=== PATIENT | female | born 1950 | race Caucasian/White ===

== ENCOUNTER 2017-04-10 11:34 | Inpatient (IN) | payer MEDICARE, OTHER ==
[~2017-04-10 11:34] MED LIST: ALEVE220 M1 PO; ASPIR 8181 MG PO; CALCIUM CARBON600 M2 PO; COUMADIN5 M1 PO; CRESTOR10 M1 PO; FISH OIL 1,2001 EAC5 PO; GLUCOSAMINE CHO PO; LOTREL 10-20 M1 EACH PO; NORCO 5/3251 TAB PO; ZIAC 10/6.25 MG1 TAB PO
[2017-04-10] MEDS ORDERED: OSTEO BI-FLEX1 EAC5 PO (11:57)
[2017-04-10] MEDS ORDERED: BISOPROLOL-HCT1 EAC1 PO (11:58)
[2017-04-10] MEDS ORDERED: VITAMIN D5000 UNI1 PO (11:58)
[2017-04-10] MEDS ORDERED: ROSUVASTATIN CA10 MG PO (12:01)
[2017-04-10] MEDS ORDERED: FOSAMAX70 M1 PO (12:21)
[2017-04-10] MEDS ORDERED: ASPIRIN81 M1 PO (12:35)
[2017-04-10 12:46] LABS: HCT-HEMATOCRIT 35.4 % (34.0-49.0); MCH (MEAN CORPUSCULAR HGB) 28.6 pg (28.0-32.0); MCHC MEAN CORPUSCULAR HGB CONC 33.9 % (32.0-36.0); MCV (MEAN CELL VOLUME) 84.3 fl (82.0-96.0); MEAN PLATELET VOLUME 10.2 cmc (9.4-12.4); PLATELET COUNT 133 tho/cmm (150-450); RED CELL DISTRIBUTION WIDTH 14.5 % (12.4-16.4); WHITE BLOOD COUNT 21.2 tho/cmm (4.0-10.0)
[2017-04-10 12:58] LABS: ALB/GLOB RATIO 1.1 (0.8-2.0); ALBUMIN 3.3 g/dl (3.5-5.0); ALKALINE PHOSPHATASE 49 U/L (33-138); ALT/SGPT 26 U/L (12-78); ANION GAP 18 mmol/L (0-20); AST/SGOT 24 U/L (10-40); BILIRUBIN,TOTAL 1.1 mg/dl (0-1.5); BLOOD UREA NITROGEN 44 mg/dl (6-24); CALCIUM 9.1 mg/dl (8.5-10.5); CARBON DIOXIDE-VENOUS 20 mmol/L (22-32); CHLORIDE 105 mmol/l (96-110); CREATININE 1.79 mg/dl (0.50-1.10); GLUCOSE 127 mg/dL (70-110); POTASSIUM 3.4 mmol/L (3.7-5.1); SODIUM 140 mmol/L (135-145); eGFR VALUE FOR BLACK 34 mL/Min
[2017-04-10 13:13] LABS: BAND % 21 % (0-20); BAND ABSOLUTE COUNT 4.5 tho/cmm (0-2.0); WBC MORPHOLOGY TOXIC GRANULATION
[2017-04-10 14:12] LABS: PROCALCITONIN 21.98 ng/ml (0.05-0.09)
[2017-04-10 14:18] LABS: URINE APPEARANCE HAZY; URINE BILIRUBIN SMALL (NEG); URINE BLOOD LARGE (NEG); URINE COLOR ORANGE; URINE GLUCOSE (UA) NEGATIVE (NEG); URINE KETONE SMALL (NEG); URINE LEUKOCYTE ESTERASE POSITIVE (NEG); URINE NITRITE NEGATIVE (NEG); URINE PROTEIN MODERATE (NEG)
[2017-04-10 14:29] LABS: URINE BACTERIA 4+
[2017-04-10 14:30] LABS: URINE WBC 50-60 /[HPF] (0-5)
[2017-04-10 14:31] LABS: URINE RBC 30-40 /[HPF] (0-5)
[2017-04-10 14:32] LABS: URINE MUCUS 1+
[2017-04-10 19:39] LABS: ABG CO2 ARTERIAL 15 mmol/L (21-27); ARTERIAL BLD GAS O2 SATURATION 94 % (95-98); ARTERIAL BLOOD GAS PCO2 27 mmHg (32-45); ARTERIAL PO2 78 mmHg (70-100); BICARBONATE 14 mmol/L (21-28); BLOOD GAS BASE EXCESS -10 mM/L (-/+3); PH 7.34 Units (7.35-7.45)
[2017-04-10 19:49] LABS: INR 1.7 INR (0.9-1.1); PROTHROMBIN TIME 20.5 SECONDS (9.0-13.6)
[2017-04-10 23:15] LABS: ARTERIAL BLD GAS O2 SATURATION 93 % (95-98); BLOOD GAS BASE EXCESS -19 mM/L (-/+3)
[2017-04-10 23:19] LABS: ABG CO2 ARTERIAL 9 mmol/L (21-27); ARTERIAL BLOOD GAS PCO2 20 mmHg (32-45); PH 7.21 Units (7.35-7.45)
[2017-04-10 23:20] LABS: ARTERIAL PO2 79 mmHg (70-100); BICARBONATE 8 mmol/L (21-28)
[2017-04-11 00:54] LABS: BLOOD UREA NITROGEN 44 mg/dl (6-24); CALCIUM 7.2 mg/dl (8.5-10.5); CHLORIDE 110 mmol/l (96-110); GLUCOSE 111 mg/dL (70-110); SODIUM 141 mmol/L (135-145); eGFR VALUE FOR BLACK 19 mL/Min
[2017-04-11 01:21] LABS: ANION GAP 27 mmol/L (0-20); CREATININE 2.82 mg/dl (0.50-1.10)
[2017-04-11 01:22] LABS: CARBON DIOXIDE-VENOUS 8 mmol/L (22-32)
[2017-04-11 01:23] LABS: POTASSIUM 3.5 mmol/L (3.7-5.1)
[2017-04-11 02:00] LABS: ARTERIAL BLD GAS O2 SATURATION 94 % (95-98); ARTERIAL BLOOD GAS PCO2 23 mmHg (32-45); ARTERIAL PO2 102 mmHg (70-100); BICARBONATE 6 mmol/L (21-28); BLOOD GAS BASE EXCESS -23 mM/L (-/+3)
[2017-04-11 02:04] LABS: PH 7.06 Units (7.35-7.45)
[2017-04-11 02:05] LABS: ABG CO2 ARTERIAL 7 mmol/L (21-27)
[2017-04-11 04:28] LABS: ARTERIAL BLD GAS O2 SATURATION 96 % (95-98); ARTERIAL PO2 94 mmHg (70-100); BICARBONATE 8 mmol/L (21-28); BLOOD GAS BASE EXCESS -18 mM/L (-/+3)
[2017-04-11 04:29] LABS: PH 7.24 Units (7.35-7.45)
[2017-04-11 04:30] LABS: ARTERIAL BLOOD GAS PCO2 19 mmHg (32-45)
[2017-04-11 04:31] LABS: ABG CO2 ARTERIAL 9 mmol/L (21-27)
[2017-04-11 07:39] LABS: ABG CO2 ARTERIAL 9 mmol/L (21-27); ARTERIAL BLD GAS O2 SATURATION 97 % (95-98); ARTERIAL BLOOD GAS PCO2 27 mmHg (32-45); ARTERIAL PO2 117 mmHg (70-100); BICARBONATE 8 mmol/L (21-28); BLOOD GAS BASE EXCESS -20 mM/L (-/+3); HCT-HEMATOCRIT 30.5 % (34.0-49.0); HGB-HEMOGLOBIN 9.8 gm/dl (12.0-15.5); MCHC MEAN CORPUSCULAR HGB CONC 32.1 % (32.0-36.0); MCV (MEAN CELL VOLUME) 87.1 fl (82.0-96.0); MEAN PLATELET VOLUME 10.8 cmc (9.4-12.4); NEUTROPHIL-AUTOMATED 14.7 tho/cmm (1.6-8.0); PH 7.12 Units (7.35-7.45); RED CELL DISTRIBUTION WIDTH 15.6 % (12.4-16.4); WHITE BLOOD COUNT 17.1 tho/cmm (4.0-10.0)
[2017-04-11 08:05] LABS: BLOOD UREA NITROGEN 44 mg/dl (6-24); CALCIUM 6.7 mg/dl (8.5-10.5); CHLORIDE 108 mmol/l (96-110); SODIUM 144 mmol/L (135-145); eGFR VALUE FOR BLACK 20 mL/Min
[2017-04-11 08:42] LABS: ANION GAP 30 mmol/L (0-20); GLUCOSE 177 mg/dL (70-110)
[2017-04-11 08:43] LABS: POTASSIUM 2.8 mmol/L (3.7-5.1)
[2017-04-11 10:57] LABS: PLATELET COUNT 48 tho/cmm (150-450)
[2017-04-11 11:02] LABS: BAND % 41 % (0-20)
[2017-04-11 12:05] LABS: ARTERIAL BLD GAS O2 SATURATION 97 % (95-98); BICARBONATE 7 mmol/L (21-28); BLOOD GAS BASE EXCESS -20 mM/L (-/+3)
[2017-04-11 12:06] LABS: ABG CO2 ARTERIAL 7 mmol/L (21-27); ARTERIAL BLOOD GAS PCO2 17 mmHg (32-45); ARTERIAL PO2 100 mmHg (70-100); PH 7.22 Units (7.35-7.45)
[2017-04-11 12:07] LABS: PHOSPHOROUS 5.8 mg/dl (2.5-4.9)
[2017-04-11 12:24] LABS: BLOOD UREA NITROGEN 44 mg/dl (6-24); CHLORIDE 106 mmol/l (96-110); CREATININE 2.82 mg/dl (0.50-1.10); GLUCOSE 188 mg/dL (70-110); POTASSIUM 3.4 mmol/L (3.7-5.1); SODIUM 141 mmol/L (135-145); eGFR VALUE FOR BLACK 19 mL/Min
[2017-04-11 12:41] LABS: ANION GAP 30 mmol/L (0-20)
[2017-04-11 12:44] LABS: CALCIUM 6.2 mg/dl (8.5-10.5); CARBON DIOXIDE-VENOUS 8 mmol/L (22-32)
[2017-04-11 12:44] LABS: CARBON DIOXIDE-VENOUS 9 mmol/L (22-32)
[2017-04-11 18:18] LABS: ABG CO2 ARTERIAL 10 mmol/L (21-27); ARTERIAL BLD GAS O2 SATURATION 97 % (95-98); ARTERIAL PO2 98 mmHg (70-100); BICARBONATE 9 mmol/L (21-28); BLOOD GAS BASE EXCESS -15 mM/L (-/+3); PH 7.32 Units (7.35-7.45)
[2017-04-11 18:19] LABS: ARTERIAL BLOOD GAS PCO2 19 mmHg (32-45)
[2017-04-11 18:34] LABS: BLOOD UREA NITROGEN 48 mg/dl (6-24); CHLORIDE 107 mmol/l (96-110); CREATININE 3.06 mg/dl (0.50-1.10); GLUCOSE 129 mg/dL (70-110); POTASSIUM 4.1 mmol/L (3.7-5.1); SODIUM 143 mmol/L (135-145); eGFR VALUE FOR BLACK 18 mL/Min
[2017-04-11 18:45] LABS: ANION GAP 31 mmol/L (0-20); CALCIUM 7.9 mg/dl (8.5-10.5)
[2017-04-11 18:46] LABS: CARBON DIOXIDE-VENOUS 9 mmol/L (22-32)
[2017-04-11 21:21] LABS: ABG CO2 ARTERIAL 19 mmol/L (21-27); ARTERIAL BLD GAS O2 SATURATION 92 % (95-98); ARTERIAL BLOOD GAS PCO2 25 mmHg (32-45); ARTERIAL PO2 59 mmHg (70-100); BICARBONATE 18 mmol/L (21-28); BLOOD GAS BASE EXCESS -4 mM/L (-/+3); PH 7.48 Units (7.35-7.45)
[2017-04-12 00:28] LABS: ABG CO2 ARTERIAL 16 mmol/L (21-27); ARTERIAL BLD GAS O2 SATURATION 93 % (95-98); ARTERIAL BLOOD GAS PCO2 24 mmHg (32-45); ARTERIAL PO2 68 mmHg (70-100); BICARBONATE 15 mmol/L (21-28); BLOOD GAS BASE EXCESS -8 mM/L (-/+3); PH 7.42 Units (7.35-7.45)
[2017-04-12 00:44] LABS: ANION GAP 31 mmol/L (0-20); BLOOD UREA NITROGEN 50 mg/dl (6-24); CALCIUM 7.1 mg/dl (8.5-10.5); CHLORIDE 102 mmol/l (96-110); CREATININE 3.62 mg/dl (0.50-1.10); GLUCOSE 115 mg/dL (70-110); POTASSIUM 3.8 mmol/L (3.7-5.1); SODIUM 145 mmol/L (135-145); eGFR VALUE FOR BLACK 14 mL/Min
[2017-04-12 01:00] LABS: CARBON DIOXIDE-VENOUS 16 mmol/L (22-32)
[2017-04-12 04:36] LABS: ABG CO2 ARTERIAL 19 mmol/L (21-27); ARTERIAL BLD GAS O2 SATURATION 94 % (95-98); ARTERIAL BLOOD GAS PCO2 27 mmHg (32-45); ARTERIAL PO2 71 mmHg (70-100); BICARBONATE 18 mmol/L (21-28); BLOOD GAS BASE EXCESS -4 mM/L (-/+3); PH 7.44 Units (7.35-7.45)
[2017-04-12 05:06] LABS: ALBUMIN 2.5 g/dl (3.5-5.0); ALKALINE PHOSPHATASE 67 U/L (33-138); BLOOD UREA NITROGEN 52 mg/dl (6-24); CALCIUM 6.8 mg/dl (8.5-10.5); CARBON DIOXIDE-VENOUS 19 mmol/L (22-32); CHLORIDE 101 mmol/l (96-110); INR 2.6 INR (0.9-1.1); PHOSPHOROUS 3.7 mg/dl (2.5-4.9); PROTHROMBIN TIME 31.1 SECONDS (9.0-13.6); SODIUM 145 mmol/L (135-145); eGFR VALUE FOR BLACK 13 mL/Min
[2017-04-12 05:09] LABS: ALB/GLOB RATIO 1.3 (0.8-2.0); ANION GAP 29 mmol/L (0-20); BILIRUBIN,TOTAL 3.3 mg/dl (0-1.5); GLUCOSE 102 mg/dL (70-110); MAGNESIUM 1.9 mg/dl (1.8-2.6)
[2017-04-12 05:32] LABS: AST/SGOT 2826 U/L (10-40)
[2017-04-12 05:33] LABS: ALT/SGPT 1953 U/L (12-78)
[2017-04-12 05:36] LABS: HCT-HEMATOCRIT 27.2 % (34.0-49.0); HGB-HEMOGLOBIN 9.5 gm/dl (12.0-15.5); MCH (MEAN CORPUSCULAR HGB) 28.7 pg (28.0-32.0); MCV (MEAN CELL VOLUME) 82.2 fl (82.0-96.0); NEUTROPHIL-AUTOMATED 13.5 tho/cmm (1.6-8.0); RED BLOOD COUNT 3.31 mil/cmm (4.00-5.20); RED CELL DISTRIBUTION WIDTH 15.5 % (12.4-16.4); WHITE BLOOD COUNT 14.9 tho/cmm (4.0-10.0)
[2017-04-12 05:39] LABS: MCHC MEAN CORPUSCULAR HGB CONC 34.9 % (32.0-36.0)
[2017-04-12 05:42] LABS: PLATELET COUNT 29 tho/cmm (150-450)
[2017-04-12 06:37] LABS: BILIRUBIN,DIRECT 2.1 mg/dl (0.0-0.3); BILIRUBIN,INDIRECT 1.3 mg/dL (0.0-1.0); BILIRUBIN,TOTAL 3.4 mg/dl (0-1.5)
[2017-04-12 06:42] LABS: ABG CO2 ARTERIAL 21 mmol/L (21-27); ARTERIAL BLD GAS O2 SATURATION 94 % (95-98); ARTERIAL BLOOD GAS PCO2 28 mmHg (32-45); ARTERIAL PO2 70 mmHg (70-100); BICARBONATE 20 mmol/L (21-28); BLOOD GAS BASE EXCESS -3 mM/L (-/+3); PH 7.47 Units (7.35-7.45)
[2017-04-12 06:59] LABS: INR 2.5 INR (0.9-1.1); PROTHROMBIN TIME 29.5 SECONDS (9.0-13.6)
[2017-04-12 08:39] LABS: INR 2.3 INR (0.9-1.1); PROTHROMBIN TIME 26.9 SECONDS (9.0-13.6)
[2017-04-12 11:31] LABS: ABG CO2 ARTERIAL 24 mmol/L (21-27); ARTERIAL BLD GAS O2 SATURATION 97 % (95-98); BICARBONATE 23 mmol/L (21-28); BLOOD GAS BASE EXCESS -1 mM/L (-/+3); PH 7.44 Units (7.35-7.45)
[2017-04-12 11:32] LABS: ARTERIAL BLOOD GAS PCO2 34 mmHg (32-45); ARTERIAL PO2 98 mmHg (70-100)
[2017-04-12 11:35] LABS: BAND % 56 % (0-20); BAND ABSOLUTE COUNT 8.3 tho/cmm (0-2.0)
[2017-04-12 12:49] LABS: BLOOD UREA NITROGEN 55 mg/dl (6-24); CALCIUM 7.4 mg/dl (8.5-10.5); CARBON DIOXIDE-VENOUS 24 mmol/L (22-32); CHLORIDE 101 mmol/l (96-110); CREATININE 4.01 mg/dl (0.50-1.10); SODIUM 145 mmol/L (135-145); eGFR VALUE FOR BLACK 13 mL/Min
[2017-04-12 12:52] LABS: ANION GAP 24 mmol/L (0-20); GLUCOSE 103 mg/dL (70-110); POTASSIUM 3.9 mmol/L (3.7-5.1)
[2017-04-12 12:53] LABS: PREALBUMIN >60.0 mg/dl (20.0-40.0)
[2017-04-12 14:13] LABS: HCT-HEMATOCRIT 24.9 % (34.0-49.0); MCH (MEAN CORPUSCULAR HGB) 29.5 pg (28.0-32.0); MCHC MEAN CORPUSCULAR HGB CONC 36.1 % (32.0-36.0); MCV (MEAN CELL VOLUME) 81.6 fl (82.0-96.0); MEAN PLATELET VOLUME 9.9 cmc (9.4-12.4); RED BLOOD COUNT 3.05 mil/cmm (4.00-5.20); RED CELL DISTRIBUTION WIDTH 15.4 % (12.4-16.4); WHITE BLOOD COUNT 17.8 tho/cmm (4.0-10.0)
[2017-04-12 14:16] LABS: INR 1.8 INR (0.9-1.1)
[2017-04-12 14:37] LABS: PROTHROMBIN TIME 20.7 SECONDS (9.0-13.6)
[2017-04-12 14:44] LABS: BAND % 42 % (0-20); BAND ABSOLUTE COUNT 7.5 tho/cmm (0-2.0); PLATELET COUNT 80 tho/cmm (150-450)
[2017-04-12 17:35] LABS: ABG CO2 ARTERIAL 26 mmol/L (21-27); ARTERIAL BLD GAS O2 SATURATION 97 % (95-98); ARTERIAL BLOOD GAS PCO2 38 mmHg (32-45); ARTERIAL PO2 100 mmHg (70-100); BICARBONATE 25 mmol/L (21-28); BLOOD GAS BASE EXCESS 1 mM/L (-/+3); PH 7.43 Units (7.35-7.45)
[2017-04-12 17:55] LABS: CARBON DIOXIDE-VENOUS 26 mmol/L (22-32); CHLORIDE 102 mmol/l (96-110); SODIUM 142 mmol/L (135-145); eGFR VALUE FOR BLACK 23 mL/Min
[2017-04-12 17:57] LABS: ANION GAP 18 mmol/L (0-20); CREATININE 2.42 mg/dl (0.50-1.10); GLUCOSE 135 mg/dL (70-110); POTASSIUM 3.5 mmol/L (3.7-5.1)
[2017-04-12 18:18] LABS: BLOOD UREA NITROGEN 30 mg/dl (6-24)
[2017-04-13 00:28] LABS: ABG CO2 ARTERIAL 27 mmol/L (21-27); ARTERIAL BLD GAS O2 SATURATION 98 % (95-98); ARTERIAL BLOOD GAS PCO2 37 mmHg (32-45); ARTERIAL PO2 97 mmHg (70-100); BICARBONATE 26 mmol/L (21-28); BLOOD GAS BASE EXCESS 2 mM/L (-/+3); PH 7.45 Units (7.35-7.45)
[2017-04-13 00:45] LABS: CALCIUM 6.6 mg/dl (8.5-10.5); CARBON DIOXIDE-VENOUS 26 mmol/L (22-32); CHLORIDE 100 mmol/l (96-110); CREATININE 2.92 mg/dl (0.50-1.10); SODIUM 140 mmol/L (135-145); eGFR VALUE FOR BLACK 19 mL/Min
[2017-04-13 00:46] LABS: ANION GAP 18 mmol/L (0-20); GLUCOSE 97 mg/dL (70-110); POTASSIUM 4.3 mmol/L (3.7-5.1)
[2017-04-13 00:47] LABS: BLOOD UREA NITROGEN 30 mg/dl (6-24)
[2017-04-13 03:47] LABS: HGB-HEMOGLOBIN 8.7 gm/dl (12.0-15.5); MCHC MEAN CORPUSCULAR HGB CONC 36.3 % (32.0-36.0); MCV (MEAN CELL VOLUME) 82.8 fl (82.0-96.0); NEUTROPHIL-AUTOMATED 12.8 tho/cmm (1.6-8.0); PLATELET COUNT 54 tho/cmm (150-450); RED CELL DISTRIBUTION WIDTH 15.6 % (12.4-16.4); WHITE BLOOD COUNT 16.3 tho/cmm (4.0-10.0)
[2017-04-13 04:13] LABS: BASO % 0.1 % (0-2); EOS % 0.2 % (0-7); IMMATURE GRANULOCYTES ABSOLUTE 1.99 tho/cmm (0-0.03); IMMATURE GRANULOCYTES PERCENT 12.2 % (0-0.3); INR 1.4 INR (0.9-1.1); LYMPH % 4.4 % (20-45); LYMPH ABSOLUTE COUNT 0.7 tho/cmm (0.8-4.5); MONO % 4.4 % (0-12); MONOCYTE ABSOLUTE COUNT 0.7 tho/cmm (0.0-1.2); NEUTROPHIL ABSOLUTE COUNT 12.8 tho/cmm (1.6-8.0); NEUTROPHILS % 78.7 % (40-80); PROTHROMBIN TIME 16.9 SECONDS (9.0-13.6)
[2017-04-13 04:45] LABS: BLOOD UREA NITROGEN 33 mg/dl (6-24)
[2017-04-13 04:55] LABS: ABG CO2 ARTERIAL 28 mmol/L (21-27); ARTERIAL BLD GAS O2 SATURATION 96 % (95-98); ARTERIAL BLOOD GAS PCO2 39 mmHg (32-45); ARTERIAL PO2 96 mmHg (70-100); BICARBONATE 27 mmol/L (21-28); BLOOD GAS BASE EXCESS 3 mM/L (-/+3); PH 7.45 Units (7.35-7.45)
[2017-04-13 05:11] LABS: CHLORIDE 101 mmol/l (96-110); POTASSIUM 4.1 mmol/L (3.7-5.1); SODIUM 142 mmol/L (135-145)
[2017-04-13 05:12] LABS: ALB/GLOB RATIO 1.2 (0.8-2.0); ALBUMIN 2.9 g/dl (3.5-5.0); ANION GAP 19 mmol/L (0-20); CALCIUM 7.1 mg/dl (8.5-10.5); CARBON DIOXIDE-VENOUS 26 mmol/L (22-32); CREATININE 3.17 mg/dl (0.50-1.10); GLUCOSE 73 mg/dL (70-110); eGFR VALUE FOR BLACK 17 mL/Min
[2017-04-13 05:13] LABS: ALKALINE PHOSPHATASE 205 U/L (33-138); ALT/SGPT 1354 U/L (12-78); AST/SGOT 1318 U/L (10-40); MAGNESIUM 1.7 mg/dl (1.8-2.6); PHOSPHOROUS 2.3 mg/dl (2.5-4.9); TRIGLYCERIDES 489 mg/dl (<149)
[2017-04-13 05:14] LABS: BILIRUBIN,DIRECT 3.7 mg/dl (0.0-0.3); BILIRUBIN,TOTAL 5.7 mg/dl (0-1.5)
[2017-04-13 06:45] LABS: ABG CO2 ARTERIAL 28 mmol/L (21-27); ARTERIAL BLD GAS O2 SATURATION 97 % (95-98); ARTERIAL BLOOD GAS PCO2 38 mmHg (32-45); ARTERIAL PO2 99 mmHg (70-100); BICARBONATE 27 mmol/L (21-28); BLOOD GAS BASE EXCESS 4 mM/L (-/+3); PH 7.47 Units (7.35-7.45)
[2017-04-13 07:22] LABS: WBC MORPHOLOGY DOHLE BODIES
[2017-04-13 08:34] LABS: AMYLASE 60 U/L (20-90); LIPASE 303 U/L (73-393)
[2017-04-13 08:36] LABS: CALCIUM 6.8 mg/dl (8.5-10.5); CARBON DIOXIDE-VENOUS 26 mmol/L (22-32); CHLORIDE 98 mmol/l (96-110); CREATININE 3.23 mg/dl (0.50-1.10); SODIUM 139 mmol/L (135-145); eGFR VALUE FOR BLACK 16 mL/Min
[2017-04-13 08:48] LABS: ANION GAP 19 mmol/L (0-20); GLUCOSE 98 mg/dL (70-110)
[2017-04-13 08:53] LABS: BLOOD UREA NITROGEN 33 mg/dl (6-24)
[2017-04-13 12:24] LABS: ABG CO2 ARTERIAL 29 mmol/L (21-27); ARTERIAL BLD GAS O2 SATURATION 96 % (95-98); ARTERIAL BLOOD GAS PCO2 38 mmHg (32-45); BICARBONATE 28 mmol/L (21-28); BLOOD GAS BASE EXCESS 4 mM/L (-/+3); PH 7.48 Units (7.35-7.45)
[2017-04-13 12:25] LABS: ARTERIAL PO2 76 mmHg (70-100)
[2017-04-13 12:42] LABS: BLOOD UREA NITROGEN 37 mg/dl (6-24); CALCIUM 6.8 mg/dl (8.5-10.5); CARBON DIOXIDE-VENOUS 28 mmol/L (22-32); CHLORIDE 99 mmol/l (96-110); CREATININE 3.54 mg/dl (0.50-1.10); SODIUM 139 mmol/L (135-145); eGFR VALUE FOR BLACK 15 mL/Min
[2017-04-13 12:45] LABS: ANION GAP 16 mmol/L (0-20); GLUCOSE 95 mg/dL (70-110)
[2017-04-13 18:00] LABS: ABG CO2 ARTERIAL 27 mmol/L (21-27); ARTERIAL BLD GAS O2 SATURATION 97 % (95-98); ARTERIAL BLOOD GAS PCO2 37 mmHg (32-45); BICARBONATE 26 mmol/L (21-28); BLOOD GAS BASE EXCESS 2 mM/L (-/+3); PH 7.45 Units (7.35-7.45)
[2017-04-13 18:01] LABS: ARTERIAL PO2 87 mmHg (70-100)
[2017-04-13 18:39] LABS: BLOOD UREA NITROGEN 15 mg/dl (6-24); CALCIUM 6.8 mg/dl (8.5-10.5); CARBON DIOXIDE-VENOUS 25 mmol/L (22-32); CHLORIDE 103 mmol/l (96-110); GLUCOSE 121 mg/dL (70-110); SODIUM 140 mmol/L (135-145); eGFR VALUE FOR BLACK 30 mL/Min
[2017-04-13 18:44] LABS: ANION GAP 16 mmol/L (0-20); CREATININE 1.98 mg/dl (0.50-1.10); POTASSIUM 3.8 mmol/L (3.7-5.1)
[2017-04-13 23:57] LABS: ABG CO2 ARTERIAL 26 mmol/L (21-27); ARTERIAL BLD GAS O2 SATURATION 98 % (95-98); ARTERIAL BLOOD GAS PCO2 36 mmHg (32-45); ARTERIAL PO2 101 mmHg (70-100); BICARBONATE 25 mmol/L (21-28); BLOOD GAS BASE EXCESS 2 mM/L (-/+3); PH 7.46 Units (7.35-7.45)
[2017-04-14 04:31] LABS: ALB/GLOB RATIO 0.8 (0.8-2.0); ALBUMIN 2.3 g/dl (3.5-5.0); ALT/SGPT 878 U/L (12-78); BILIRUBIN,TOTAL 7.6 mg/dl (0-1.5); BLOOD UREA NITROGEN 23 mg/dl (6-24); CALCIUM 7.1 mg/dl (8.5-10.5); CARBON DIOXIDE-VENOUS 26 mmol/L (22-32); CHLORIDE 98 mmol/l (96-110); GLUCOSE 110 mg/dL (70-110); SODIUM 137 mmol/L (135-145)
[2017-04-14 04:32] LABS: ANION GAP 17 mmol/L (0-20); CREATININE 2.98 mg/dl (0.50-1.10); eGFR VALUE FOR BLACK 18 mL/Min
[2017-04-14 04:33] LABS: ALKALINE PHOSPHATASE 379 U/L (33-138); AST/SGOT 672 U/L (10-40); BILIRUBIN,INDIRECT 1.6 mg/dL (0.0-1.0)
[2017-04-14 04:34] LABS: POTASSIUM 3.8 mmol/L (3.7-5.1)
[2017-04-14 04:51] LABS: INR 1.3 INR (0.9-1.1)
[2017-04-14 04:54] LABS: HCT-HEMATOCRIT 25.5 % (34.0-49.0); HGB-HEMOGLOBIN 8.8 gm/dl (12.0-15.5); MCHC MEAN CORPUSCULAR HGB CONC 34.5 % (32.0-36.0); MCV (MEAN CELL VOLUME) 82.5 fl (82.0-96.0); MEAN PLATELET VOLUME 10.6 cmc (9.4-12.4); RED BLOOD COUNT 3.09 mil/cmm (4.00-5.20); RED CELL DISTRIBUTION WIDTH 15.6 % (12.4-16.4); WHITE BLOOD COUNT 21.1 tho/cmm (4.0-10.0)
[2017-04-14 05:01] LABS: MCH (MEAN CORPUSCULAR HGB) 28.5 pg (28.0-32.0)
[2017-04-14 05:31] LABS: MAGNESIUM 1.8 mg/dl (1.8-2.6); PHOSPHOROUS 0.6 mg/dl (2.5-4.9)
[2017-04-14 05:38] LABS: ABG CO2 ARTERIAL 27 mmol/L (21-27); ARTERIAL BLD GAS O2 SATURATION 95 % (95-98); ARTERIAL BLOOD GAS PCO2 35 mmHg (32-45); BICARBONATE 26 mmol/L (21-28); BLOOD GAS BASE EXCESS 3 mM/L (-/+3); PH 7.48 Units (7.35-7.45)
[2017-04-14 05:43] LABS: ARTERIAL PO2 70 mmHg (70-100)
[2017-04-14 06:56] LABS: PLATELET COUNT 27 tho/cmm (150-450)
[2017-04-14 07:05] LABS: BAND % 43 % (0-20); BAND ABSOLUTE COUNT 9.1 tho/cmm (0-2.0)
[2017-04-14 19:46] LABS: MAGNESIUM 1.7 mg/dl (1.8-2.6); POTASSIUM 4.1 mmol/L (3.7-5.1)
[2017-04-15 04:52] LABS: ABG CO2 ARTERIAL 26 mmol/L (21-27); ARTERIAL BLD GAS O2 SATURATION 96 % (95-98); ARTERIAL BLOOD GAS PCO2 35 mmHg (32-45); ARTERIAL PO2 79 mmHg (70-100); BICARBONATE 24 mmol/L (21-28); BLOOD GAS BASE EXCESS 1 mM/L (-/+3); PH 7.46 Units (7.35-7.45)
[2017-04-15 05:14] LABS: ALBUMIN 2.2 g/dl (3.5-5.0); BILIRUBIN,DIRECT 7.9 mg/dl (0.0-0.3); CALCIUM 7.7 mg/dl (8.5-10.5); CARBON DIOXIDE-VENOUS 25 mmol/L (22-32); CHLORIDE 100 mmol/l (96-110); GLUCOSE 98 mg/dL (70-110); SODIUM 137 mmol/L (135-145)
[2017-04-15 05:17] LABS: ALB/GLOB RATIO 0.7 (0.8-2.0); BILIRUBIN,INDIRECT 1.7 mg/dL (0.0-1.0); BILIRUBIN,TOTAL 9.6 mg/dl (0-1.5); PHOSPHOROUS 2.3 mg/dl (2.5-4.9)
[2017-04-15 05:22] LABS: ALKALINE PHOSPHATASE 482 U/L (33-138); ALT/SGPT 409 U/L (12-78); ANION GAP 16 mmol/L (0-20); AST/SGOT 284 U/L (10-40); BLOOD UREA NITROGEN 43 mg/dl (6-24); CREATININE 4.46 mg/dl (0.50-1.10); MAGNESIUM 2.3 mg/dl (1.8-2.6); eGFR VALUE FOR BLACK 11 mL/Min
[2017-04-15 08:27] LABS: HGB-HEMOGLOBIN 9.2 gm/dl (12.0-15.5); MCH (MEAN CORPUSCULAR HGB) 28.1 pg (28.0-32.0); MCHC MEAN CORPUSCULAR HGB CONC 34.1 % (32.0-36.0); MCV (MEAN CELL VOLUME) 82.6 fl (82.0-96.0); NEUTROPHIL-AUTOMATED 24.9 tho/cmm (1.6-8.0); RED BLOOD COUNT 3.27 mil/cmm (4.00-5.20); RED CELL DISTRIBUTION WIDTH 15.3 % (12.4-16.4); WHITE BLOOD COUNT 28.9 tho/cmm (4.0-10.0)
[2017-04-15 08:30] LABS: PLATELET COUNT 19 tho/cmm (150-450)
[2017-04-15 09:59] LABS: BAND % 35 % (0-20); BAND ABSOLUTE COUNT 10.1 tho/cmm (0-2.0); EOSINOPHIL % 1 % (0-7)
[2017-04-15 10:25] LABS: ABG CO2 ARTERIAL 25 mmol/L (21-27); ARTERIAL BLD GAS O2 SATURATION 94 % (95-98); ARTERIAL BLOOD GAS PCO2 33 mmHg (32-45); BICARBONATE 24 mmol/L (21-28); BLOOD GAS BASE EXCESS 1 mM/L (-/+3); PH 7.46 Units (7.35-7.45)
[2017-04-15 10:29] LABS: ARTERIAL PO2 65 mmHg (70-100)
[2017-04-16 04:28] LABS: BASO % 0.1 % (0-2); EOS % 0.7 % (0-7); EOSINOPHIL ABSOLUTE COUNT 0.2 tho/cmm (0.0-0.7); HCT-HEMATOCRIT 25.5 % (34.0-49.0); HGB-HEMOGLOBIN 8.8 gm/dl (12.0-15.5); IMMATURE GRANULOCYTES ABSOLUTE 0.47 tho/cmm (0-0.03); IMMATURE GRANULOCYTES PERCENT 1.5 % (0-0.3); INR 1.2 INR (0.9-1.1); LYMPH ABSOLUTE COUNT 0.9 tho/cmm (0.8-4.5); MCH (MEAN CORPUSCULAR HGB) 27.8 pg (28.0-32.0); MCHC MEAN CORPUSCULAR HGB CONC 34.5 % (32.0-36.0); MCV (MEAN CELL VOLUME) 80.7 fl (82.0-96.0); MEAN PLATELET VOLUME 9.9 cmc (9.4-12.4); MONO % 9.3 % (0-12); MONOCYTE ABSOLUTE COUNT 2.9 tho/cmm (0.0-1.2); NEUTROPHIL ABSOLUTE COUNT 26.7 tho/cmm (1.6-8.0); NEUTROPHIL-AUTOMATED 26.7 tho/cmm (1.6-8.0); NEUTROPHILS % 85.4 % (40-80); PROTHROMBIN TIME 13.5 SECONDS (9.0-13.6); RED BLOOD COUNT 3.16 mil/cmm (4.00-5.20); RED CELL DISTRIBUTION WIDTH 15.5 % (12.4-16.4); WHITE BLOOD COUNT 31.3 tho/cmm (4.0-10.0)
[2017-04-16 04:38] LABS: ALB/GLOB RATIO 0.6 (0.8-2.0); ALBUMIN 2.1 g/dl (3.5-5.0); BILIRUBIN,DIRECT 7.4 mg/dl (0.0-0.3); BILIRUBIN,INDIRECT 1.7 mg/dL (0.0-1.0); BILIRUBIN,TOTAL 9.1 mg/dl (0-1.5); BLOOD UREA NITROGEN 38 mg/dl (6-24); CALCIUM 7.4 mg/dl (8.5-10.5); CARBON DIOXIDE-VENOUS 25 mmol/L (22-32); CHLORIDE 98 mmol/l (96-110); CREATININE 3.53 mg/dl (0.50-1.10); GLUCOSE 95 mg/dL (70-110); PHOSPHOROUS 2.1 mg/dl (2.5-4.9); SODIUM 134 mmol/L (135-145); eGFR VALUE FOR BLACK 15 mL/Min
[2017-04-16 04:40] LABS: PLATELET COUNT 35 tho/cmm (150-450)
[2017-04-16 05:17] LABS: ANION GAP 15 mmol/L (0-20)
[2017-04-16 05:18] LABS: ALKALINE PHOSPHATASE 509 U/L (33-138); ALT/SGPT 177 U/L (12-78); AST/SGOT 129 U/L (10-40); MAGNESIUM 1.8 mg/dl (1.8-2.6); POTASSIUM 3.9 mmol/L (3.7-5.1)
[2017-04-16 05:42] LABS: ABG CO2 ARTERIAL 24 mmol/L (21-27); ARTERIAL BLD GAS O2 SATURATION 93 % (95-98); ARTERIAL BLOOD GAS PCO2 34 mmHg (32-45); ARTERIAL PO2 63 mmHg (70-100); BICARBONATE 23 mmol/L (21-28); BLOOD GAS BASE EXCESS 0 mM/L (-/+3); PH 7.45 Units (7.35-7.45)
[2017-04-17 03:57] LABS: BASO % 0.2 % (0-2); BASO ABSOLUTE COUNT 0.1 tho/cmm (0.0-0.2); EOS % 0.7 % (0-7); EOSINOPHIL ABSOLUTE COUNT 0.2 tho/cmm (0.0-0.7); HGB-HEMOGLOBIN 7.9 gm/dl (12.0-15.5); IMMATURE GRANULOCYTES ABSOLUTE 0.51 tho/cmm (0-0.03); LYMPH % 3.9 % (20-45); MCH (MEAN CORPUSCULAR HGB) 28.2 pg (28.0-32.0); MCV (MEAN CELL VOLUME) 80.7 fl (82.0-96.0); MONO % 8.2 % (0-12); MONOCYTE ABSOLUTE COUNT 2.2 tho/cmm (0.0-1.2); NEUTROPHIL ABSOLUTE COUNT 22.2 tho/cmm (1.6-8.0); NEUTROPHIL-AUTOMATED 22.2 tho/cmm (1.6-8.0); RED CELL DISTRIBUTION WIDTH 15.9 % (12.4-16.4); WHITE BLOOD COUNT 26.1 tho/cmm (4.0-10.0)
[2017-04-17 04:10] LABS: ALB/GLOB RATIO 0.6 (0.8-2.0); ALBUMIN 1.8 g/dl (3.5-5.0); ANION GAP 18 mmol/L (0-20); AST/SGOT 66 U/L (10-40); BILIRUBIN,DIRECT 4.3 mg/dl (0.0-0.3); BILIRUBIN,TOTAL 5.1 mg/dl (0-1.5); CALCIUM 7.6 mg/dl (8.5-10.5); CARBON DIOXIDE-VENOUS 22 mmol/L (22-32); CHLORIDE 97 mmol/l (96-110); GLUCOSE 82 mg/dL (70-110); MAGNESIUM 2.1 mg/dl (1.8-2.6); PHOSPHOROUS 4.1 mg/dl (2.5-4.9); POTASSIUM 4.1 mmol/L (3.7-5.1); SODIUM 133 mmol/L (135-145)
[2017-04-17 04:17] LABS: HCT-HEMATOCRIT 22.6 % (34.0-49.0); INR 1.1 INR (0.9-1.1); PROTHROMBIN TIME 12.2 SECONDS (9.0-13.6)
[2017-04-17 04:19] LABS: PLATELET COUNT 30 tho/cmm (150-450)
[2017-04-17 04:22] LABS: BLOOD UREA NITROGEN 75 mg/dl (6-24)
[2017-04-17 04:23] LABS: ALKALINE PHOSPHATASE 459 U/L (33-138); ALT/SGPT 77 U/L (12-78); BILIRUBIN,INDIRECT 0.8 mg/dL (0.0-1.0); CREATININE 4.73 mg/dl (0.50-1.10); eGFR VALUE FOR BLACK 10 mL/Min
[2017-04-17 04:45] LABS: PROCALCITONIN 9.94 ng/ml (0.05-0.09)
[2017-04-17 05:01] LABS: ABG CO2 ARTERIAL 21 mmol/L (21-27); ARTERIAL BLD GAS O2 SATURATION 93 % (95-98); ARTERIAL BLOOD GAS PCO2 35 mmHg (32-45); ARTERIAL PO2 69 mmHg (70-100); BICARBONATE 20 mmol/L (21-28); BLOOD GAS BASE EXCESS -4 mM/L (-/+3); PH 7.38 Units (7.35-7.45)
[2017-04-17 08:11] LABS: WBC MORPHOLOGY DOHLE BODIES
[2017-04-18 04:04] LABS: PROTHROMBIN TIME 11.8 SECONDS (9.0-13.6)
[2017-04-18 04:15] LABS: ALB/GLOB RATIO 0.7 (0.8-2.0); ALKALINE PHOSPHATASE 400 U/L (33-138); ALT/SGPT 46 U/L (12-78); ANION GAP 16 mmol/L (0-20); AST/SGOT 53 U/L (10-40); BLOOD UREA NITROGEN 48 mg/dl (6-24); CALCIUM 7.6 mg/dl (8.5-10.5); CARBON DIOXIDE-VENOUS 24 mmol/L (22-32); CHLORIDE 98 mmol/l (96-110); GLUCOSE 104 mg/dL (70-110); PHOSPHOROUS 4.1 mg/dl (2.5-4.9); POTASSIUM 3.7 mmol/L (3.7-5.1); SODIUM 134 mmol/L (135-145); eGFR VALUE FOR BLACK 17 mL/Min
[2017-04-18 04:29] LABS: BASO % 0.1 % (0-2); HGB-HEMOGLOBIN 7.2 gm/dl (12.0-15.5); MCH (MEAN CORPUSCULAR HGB) 28.2 pg (28.0-32.0); MCV (MEAN CELL VOLUME) 80.4 fl (82.0-96.0); NEUTROPHILS % 86.4 % (40-80); RED BLOOD COUNT 2.55 mil/cmm (4.00-5.20); RED CELL DISTRIBUTION WIDTH 16.1 % (12.4-16.4); WHITE BLOOD COUNT 18.6 tho/cmm (4.0-10.0)
[2017-04-18 04:41] LABS: CREATININE 3.15 mg/dl (0.50-1.10)
[2017-04-18 04:47] LABS: HCT-HEMATOCRIT 20.5 % (34.0-49.0); MCHC MEAN CORPUSCULAR HGB CONC 35.1 % (32.0-36.0); PLATELET COUNT 31 tho/cmm (150-450)
[2017-04-18 04:52] LABS: EOS % 1.3 % (0-7); EOSINOPHIL ABSOLUTE COUNT 0.3 tho/cmm (0.0-0.7); IMMATURE GRANULOCYTES ABSOLUTE 0.24 tho/cmm (0-0.03); IMMATURE GRANULOCYTES PERCENT 1.2 % (0-0.3); LYMPH % 3.3 % (20-45); LYMPH ABSOLUTE COUNT 0.7 tho/cmm (0.8-4.5); MONO % 7.7 % (0-12); MONOCYTE ABSOLUTE COUNT 1.5 tho/cmm (0.0-1.2)
[2017-04-18 05:27] LABS: ABG CO2 ARTERIAL 24 mmol/L (21-27); ARTERIAL BLD GAS O2 SATURATION 95 % (95-98); ARTERIAL BLOOD GAS PCO2 35 mmHg (32-45); ARTERIAL PO2 73 mmHg (70-100); BICARBONATE 23 mmol/L (21-28); BLOOD GAS BASE EXCESS -1 mM/L (-/+3); PH 7.43 Units (7.35-7.45)
[2017-04-19 03:50] LABS: BASO % 0.1 % (0-2); EOS % 0.9 % (0-7); EOSINOPHIL ABSOLUTE COUNT 0.2 tho/cmm (0.0-0.7); HGB-HEMOGLOBIN 7.9 gm/dl (12.0-15.5); IMMATURE GRANULOCYTES ABSOLUTE 0.36 tho/cmm (0-0.03); IMMATURE GRANULOCYTES PERCENT 2.1 % (0-0.3); LYMPH ABSOLUTE COUNT 0.9 tho/cmm (0.8-4.5); MCH (MEAN CORPUSCULAR HGB) 28.5 pg (28.0-32.0); MCV (MEAN CELL VOLUME) 81.9 fl (82.0-96.0); MONO % 5.8 % (0-12); NEUTROPHIL ABSOLUTE COUNT 14.6 tho/cmm (1.6-8.0); NEUTROPHIL-AUTOMATED 14.6 tho/cmm (1.6-8.0); NEUTROPHILS % 86.1 % (40-80); RED BLOOD COUNT 2.77 mil/cmm (4.00-5.20); RED CELL DISTRIBUTION WIDTH 16.3 % (12.4-16.4); WHITE BLOOD COUNT 16.9 tho/cmm (4.0-10.0)
[2017-04-19 03:54] LABS: HCT-HEMATOCRIT 22.7 % (34.0-49.0); MCHC MEAN CORPUSCULAR HGB CONC 34.8 % (32.0-36.0); PLATELET COUNT 53 tho/cmm (150-450)
[2017-04-19 03:59] LABS: PROTHROMBIN TIME 11.9 SECONDS (9.0-13.6)
[2017-04-19 04:09] LABS: ALBUMIN 1.9 g/dl (3.5-5.0); ANION GAP 16 mmol/L (0-20); BLOOD UREA NITROGEN 38 mg/dl (6-24); CALCIUM 7.6 mg/dl (8.5-10.5); CARBON DIOXIDE-VENOUS 23 mmol/L (22-32); CHLORIDE 98 mmol/l (96-110); CREATININE 2.87 mg/dl (0.50-1.10); GLUCOSE 106 mg/dL (70-110); POTASSIUM 3.5 mmol/L (3.7-5.1); SODIUM 133 mmol/L (135-145); eGFR VALUE FOR BLACK 19 mL/Min
[2017-04-19 05:03] LABS: ABG CO2 ARTERIAL 24 mmol/L (21-27); ARTERIAL BLD GAS O2 SATURATION 95 % (95-98); ARTERIAL BLOOD GAS PCO2 34 mmHg (32-45); ARTERIAL PO2 72 mmHg (70-100); BICARBONATE 23 mmol/L (21-28); BLOOD GAS BASE EXCESS 0 mM/L (-/+3); PH 7.46 Units (7.35-7.45)
[2017-04-20 05:40] LABS: ABG CO2 ARTERIAL 23 mmol/L (21-27); ARTERIAL BLD GAS O2 SATURATION 98 % (95-98); ARTERIAL BLOOD GAS PCO2 35 mmHg (32-45); BICARBONATE 22 mmol/L (21-28); BLOOD GAS BASE EXCESS -2 mM/L (-/+3); PH 7.42 Units (7.35-7.45)
[2017-04-20 05:40] LABS: ALBUMIN 1.9 g/dl (3.5-5.0); CALCIUM 6.9 mg/dl (8.5-10.5); CARBON DIOXIDE-VENOUS 21 mmol/L (22-32); CHLORIDE 96 mmol/l (96-110); CREATININE 2.88 mg/dl (0.50-1.10); PHOSPHOROUS 3.8 mg/dl (2.5-4.9); eGFR VALUE FOR BLACK 19 mL/Min
[2017-04-20 05:41] LABS: ARTERIAL PO2 103 mmHg (70-100)
[2017-04-20 05:44] LABS: BASO % 0.4 % (0-2); BASO ABSOLUTE COUNT 0.1 tho/cmm (0.0-0.2); EOS % 1.2 % (0-7); EOSINOPHIL ABSOLUTE COUNT 0.2 tho/cmm (0.0-0.7); IMMATURE GRANULOCYTES ABSOLUTE 0.21 tho/cmm (0-0.03); IMMATURE GRANULOCYTES PERCENT 1.5 % (0-0.3); LYMPH % 3.7 % (20-45); LYMPH ABSOLUTE COUNT 0.5 tho/cmm (0.8-4.5); MCV (MEAN CELL VOLUME) 80.8 fl (82.0-96.0); MEAN PLATELET VOLUME 11.9 cmc (9.4-12.4); MONO % 7.3 % (0-12); NEUTROPHIL ABSOLUTE COUNT 12.1 tho/cmm (1.6-8.0); NEUTROPHIL-AUTOMATED 12.1 tho/cmm (1.6-8.0); NEUTROPHILS % 85.9 % (40-80); PLATELET COUNT 79 tho/cmm (150-450); RED BLOOD COUNT 2.55 mil/cmm (4.00-5.20); RED CELL DISTRIBUTION WIDTH 17.1 % (12.4-16.4)
[2017-04-20 05:46] LABS: ANION GAP 17 mmol/L (0-20); BLOOD UREA NITROGEN 39 mg/dl (6-24); GLUCOSE 118 mg/dL (70-110)
[2017-04-20 05:47] LABS: SODIUM 130 mmol/L (135-145)
[2017-04-20 05:54] LABS: HCT-HEMATOCRIT 20.6 % (34.0-49.0); HGB-HEMOGLOBIN 6.9 gm/dl (12.0-15.5); MCHC MEAN CORPUSCULAR HGB CONC 33.5 % (32.0-36.0); WHITE BLOOD COUNT 14.1 tho/cmm (4.0-10.0)
[2017-04-21 04:25] LABS: HGB-HEMOGLOBIN 8.1 gm/dl (12.0-15.5); MCH (MEAN CORPUSCULAR HGB) 27.8 pg (28.0-32.0); MCHC MEAN CORPUSCULAR HGB CONC 33.8 % (32.0-36.0); MCV (MEAN CELL VOLUME) 82.5 fl (82.0-96.0); MEAN PLATELET VOLUME 11.4 cmc (9.4-12.4); PLATELET COUNT 136 tho/cmm (150-450); RED BLOOD COUNT 2.91 mil/cmm (4.00-5.20); RED CELL DISTRIBUTION WIDTH 17.2 % (12.4-16.4); WHITE BLOOD COUNT 14.2 tho/cmm (4.0-10.0)
[2017-04-21 04:35] LABS: ANION GAP 16 mmol/L (0-20); BLOOD UREA NITROGEN 38 mg/dl (6-24); CALCIUM 8.5 mg/dl (8.5-10.5); CARBON DIOXIDE-VENOUS 23 mmol/L (22-32); CHLORIDE 99 mmol/l (96-110); CREATININE 2.91 mg/dl (0.50-1.10); GLUCOSE 116 mg/dL (70-110); POTASSIUM 3.9 mmol/L (3.7-5.1); SODIUM 134 mmol/L (135-145); eGFR VALUE FOR BLACK 19 mL/Min
[2017-04-21 04:45] LABS: PHOSPHOROUS 5.2 mg/dl (2.5-4.9)
[2017-04-21 04:50] LABS: ABG CO2 ARTERIAL 23 mmol/L (21-27); ARTERIAL BLD GAS O2 SATURATION 98 % (95-98); ARTERIAL BLOOD GAS PCO2 36 mmHg (32-45); ARTERIAL PO2 96 mmHg (70-100); BICARBONATE 22 mmol/L (21-28); BLOOD GAS BASE EXCESS -2 mM/L (-/+3); PH 7.41 Units (7.35-7.45)
[2017-04-21 06:28] LABS: BAND % 16 % (0-20); BAND ABSOLUTE COUNT 2.3 tho/cmm (0-2.0); EOSINOPHIL % 4 % (0-7)
[2017-04-22 04:30] LABS: ANION GAP 17 mmol/L (0-20); CALCIUM 8.6 mg/dl (8.5-10.5); CARBON DIOXIDE-VENOUS 22 mmol/L (22-32); CHLORIDE 101 mmol/l (96-110); GLUCOSE 98 mg/dL (70-110); MAGNESIUM 1.9 mg/dl (1.8-2.6); POTASSIUM 4.1 mmol/L (3.7-5.1); SODIUM 136 mmol/L (135-145)
[2017-04-22 04:36] LABS: BLOOD UREA NITROGEN 64 mg/dl (6-24); CREATININE 4.23 mg/dl (0.50-1.10); PHOSPHOROUS 7.5 mg/dl (2.5-4.9); eGFR VALUE FOR BLACK 12 mL/Min
[2017-04-22 04:37] LABS: BASO % 0.4 % (0-2); BASO ABSOLUTE COUNT 0.1 tho/cmm (0.0-0.2); EOS % 0.8 % (0-7); EOSINOPHIL ABSOLUTE COUNT 0.1 tho/cmm (0.0-0.7); HGB-HEMOGLOBIN 7.7 gm/dl (12.0-15.5); IMMATURE GRANULOCYTES ABSOLUTE 0.22 tho/cmm (0-0.03); IMMATURE GRANULOCYTES PERCENT 1.5 % (0-0.3); LYMPH ABSOLUTE COUNT 0.9 tho/cmm (0.8-4.5); MCH (MEAN CORPUSCULAR HGB) 27.7 pg (28.0-32.0); MCV (MEAN CELL VOLUME) 83.1 fl (82.0-96.0); MEAN PLATELET VOLUME 10.8 cmc (9.4-12.4); MONO % 5.3 % (0-12); MONOCYTE ABSOLUTE COUNT 0.8 tho/cmm (0.0-1.2); NEUTROPHIL ABSOLUTE COUNT 12.4 tho/cmm (1.6-8.0); NEUTROPHIL-AUTOMATED 12.4 tho/cmm (1.6-8.0); PLATELET COUNT 174 tho/cmm (150-450); RED BLOOD COUNT 2.78 mil/cmm (4.00-5.20); RED CELL DISTRIBUTION WIDTH 17.7 % (12.4-16.4); WHITE BLOOD COUNT 14.4 tho/cmm (4.0-10.0)
[2017-04-22 04:42] LABS: HCT-HEMATOCRIT 23.1 % (34.0-49.0); INR 1.1 INR (0.9-1.1); MCHC MEAN CORPUSCULAR HGB CONC 33.3 % (32.0-36.0); PROTHROMBIN TIME 12.2 SECONDS (9.0-13.6)
[2017-04-22 05:29] LABS: ABG CO2 ARTERIAL 22 mmol/L (21-27); ARTERIAL BLD GAS O2 SATURATION 97 % (95-98); ARTERIAL BLOOD GAS PCO2 37 mmHg (32-45); ARTERIAL PO2 94 mmHg (70-100); BICARBONATE 20 mmol/L (21-28); BLOOD GAS BASE EXCESS -4 mM/L (-/+3); PH 7.36 Units (7.35-7.45)
[2017-04-23 04:38] LABS: BASO % 0.4 % (0-2); BASO ABSOLUTE COUNT 0.1 tho/cmm (0.0-0.2); EOS % 0.7 % (0-7); EOSINOPHIL ABSOLUTE COUNT 0.1 tho/cmm (0.0-0.7); HGB-HEMOGLOBIN 7.5 gm/dl (12.0-15.5); IMMATURE GRANULOCYTES ABSOLUTE 0.13 tho/cmm (0-0.03); IMMATURE GRANULOCYTES PERCENT 1.1 % (0-0.3); LYMPH % 9.5 % (20-45); LYMPH ABSOLUTE COUNT 1.1 tho/cmm (0.8-4.5); MCV (MEAN CELL VOLUME) 83.2 fl (82.0-96.0); MEAN PLATELET VOLUME 10.7 cmc (9.4-12.4); MONO % 7.7 % (0-12); MONOCYTE ABSOLUTE COUNT 0.9 tho/cmm (0.0-1.2); NEUTROPHIL ABSOLUTE COUNT 9.2 tho/cmm (1.6-8.0); NEUTROPHIL-AUTOMATED 9.2 tho/cmm (1.6-8.0); NEUTROPHILS % 80.6 % (40-80); PLATELET COUNT 217 tho/cmm (150-450); RED BLOOD COUNT 2.68 mil/cmm (4.00-5.20); RED CELL DISTRIBUTION WIDTH 18.1 % (12.4-16.4); WHITE BLOOD COUNT 11.4 tho/cmm (4.0-10.0)
[2017-04-23 04:43] LABS: ALB/GLOB RATIO 0.6 (0.8-2.0); ALBUMIN 2.1 g/dl (3.5-5.0); ALKALINE PHOSPHATASE 290 U/L (33-138); ALT/SGPT 41 U/L (12-78); ANION GAP 16 mmol/L (0-20); AST/SGOT 46 U/L (10-40); BILIRUBIN,TOTAL 1.5 mg/dl (0-1.5); BLOOD UREA NITROGEN 37 mg/dl (6-24); CALCIUM 8.3 mg/dl (8.5-10.5); CARBON DIOXIDE-VENOUS 25 mmol/L (22-32); CHLORIDE 100 mmol/l (96-110); GLUCOSE 102 mg/dL (70-110); HCT-HEMATOCRIT 22.3 % (34.0-49.0); MAGNESIUM 1.8 mg/dl (1.8-2.6); MCHC MEAN CORPUSCULAR HGB CONC 33.6 % (32.0-36.0); POTASSIUM 3.9 mmol/L (3.7-5.1); SODIUM 137 mmol/L (135-145)
[2017-04-23 04:46] LABS: CREATININE 3.12 mg/dl (0.50-1.10); PHOSPHOROUS 4.5 mg/dl (2.5-4.9); eGFR VALUE FOR BLACK 17 mL/Min
[2017-04-23 05:44] LABS: ABG CO2 ARTERIAL 23 mmol/L (21-27); ARTERIAL BLD GAS O2 SATURATION 99 % (95-98); ARTERIAL BLOOD GAS PCO2 32 mmHg (32-45); BICARBONATE 22 mmol/L (21-28); BLOOD GAS BASE EXCESS -1 mM/L (-/+3)
[2017-04-23 05:47] LABS: ARTERIAL PO2 113 mmHg (70-100); PH 7.46 Units (7.35-7.45)
[2017-04-23 06:19] LABS: WBC MORPHOLOGY TOXIC GRANULATION
[2017-04-24 04:35] LABS: ANION GAP 20 mmol/L (0-20); CALCIUM 8.8 mg/dl (8.5-10.5); CARBON DIOXIDE-VENOUS 23 mmol/L (22-32); CHLORIDE 100 mmol/l (96-110); GLUCOSE 83 mg/dL (70-110); MAGNESIUM 2.1 mg/dl (1.8-2.6); POTASSIUM 4.1 mmol/L (3.7-5.1); SODIUM 139 mmol/L (135-145)
[2017-04-24 05:29] LABS: BLOOD UREA NITROGEN 59 mg/dl (6-24); CREATININE 4.46 mg/dl (0.50-1.10); PHOSPHOROUS 6.9 mg/dl (2.5-4.9); eGFR VALUE FOR BLACK 11 mL/Min
[2017-04-25 05:04] LABS: ANION GAP 17 mmol/L (0-20); BLOOD UREA NITROGEN 38 mg/dl (6-24); CALCIUM 8.4 mg/dl (8.5-10.5); CARBON DIOXIDE-VENOUS 24 mmol/L (22-32); CHLORIDE 102 mmol/l (96-110); CREATININE 3.41 mg/dl (0.50-1.10); GLUCOSE 92 mg/dL (70-110); POTASSIUM 3.8 mmol/L (3.7-5.1); SODIUM 139 mmol/L (135-145); eGFR VALUE FOR BLACK 15 mL/Min
[2017-04-25 05:07] LABS: BASO % 1.2 % (0-2); BASO ABSOLUTE COUNT 0.2 tho/cmm (0.0-0.2); EOS % 0.2 % (0-7); HCT-HEMATOCRIT 26.1 % (34.0-49.0); HGB-HEMOGLOBIN 8.4 gm/dl (12.0-15.5); IMMATURE GRANULOCYTES ABSOLUTE 0.27 tho/cmm (0-0.03); IMMATURE GRANULOCYTES PERCENT 2.2 % (0-0.3); LYMPH % 8.8 % (20-45); LYMPH ABSOLUTE COUNT 1.1 tho/cmm (0.8-4.5); MCH (MEAN CORPUSCULAR HGB) 27.6 pg (28.0-32.0); MCHC MEAN CORPUSCULAR HGB CONC 32.2 % (32.0-36.0); MCV (MEAN CELL VOLUME) 85.9 fl (82.0-96.0); MEAN PLATELET VOLUME 9.9 cmc (9.4-12.4); MONO % 10.9 % (0-12); MONOCYTE ABSOLUTE COUNT 1.4 tho/cmm (0.0-1.2); NEUTROPHIL ABSOLUTE COUNT 9.6 tho/cmm (1.6-8.0); NEUTROPHIL-AUTOMATED 9.6 tho/cmm (1.6-8.0); NEUTROPHILS % 76.7 % (40-80); RED BLOOD COUNT 3.04 mil/cmm (4.00-5.20); RED CELL DISTRIBUTION WIDTH 18.8 % (12.4-16.4); WHITE BLOOD COUNT 12.5 tho/cmm (4.0-10.0)
[2017-04-25 05:13] LABS: PLATELET COUNT 336 tho/cmm (150-450)
[2017-04-25 05:20] LABS: PHOSPHOROUS 4.4 mg/dl (2.5-4.9)
[2017-04-25 06:57] LABS: WBC MORPHOLOGY TOXIC GRANULATION
[2017-04-26 05:19] LABS: BASO % 1.5 % (0-2); BASO ABSOLUTE COUNT 0.2 tho/cmm (0.0-0.2); EOS % 0.4 % (0-7); EOSINOPHIL ABSOLUTE COUNT 0.1 tho/cmm (0.0-0.7); HCT-HEMATOCRIT 29.1 % (34.0-49.0); HGB-HEMOGLOBIN 9.4 gm/dl (12.0-15.5); IMMATURE GRANULOCYTES ABSOLUTE 0.17 tho/cmm (0-0.03); IMMATURE GRANULOCYTES PERCENT 1.3 % (0-0.3); LYMPH % 6.5 % (20-45); LYMPH ABSOLUTE COUNT 0.8 tho/cmm (0.8-4.5); MCH (MEAN CORPUSCULAR HGB) 27.5 pg (28.0-32.0); MCHC MEAN CORPUSCULAR HGB CONC 32.3 % (32.0-36.0); MCV (MEAN CELL VOLUME) 85.1 fl (82.0-96.0); MEAN PLATELET VOLUME 9.4 cmc (9.4-12.4); MONO % 13.8 % (0-12); MONOCYTE ABSOLUTE COUNT 1.8 tho/cmm (0.0-1.2); NEUTROPHIL ABSOLUTE COUNT 9.8 tho/cmm (1.6-8.0); NEUTROPHIL-AUTOMATED 9.8 tho/cmm (1.6-8.0); NEUTROPHILS % 76.5 % (40-80); PLATELET COUNT 327 tho/cmm (150-450); RED BLOOD COUNT 3.42 mil/cmm (4.00-5.20); RED CELL DISTRIBUTION WIDTH 18.8 % (12.4-16.4); WHITE BLOOD COUNT 12.8 tho/cmm (4.0-10.0)
[2017-04-26 05:31] LABS: ANION GAP 17 mmol/L (0-20); CALCIUM 8.7 mg/dl (8.5-10.5); CARBON DIOXIDE-VENOUS 23 mmol/L (22-32); CHLORIDE 101 mmol/l (96-110); GLUCOSE 89 mg/dL (70-110); MAGNESIUM 2.2 mg/dl (1.8-2.6); PHOSPHOROUS 5.4 mg/dl (2.5-4.9); POTASSIUM 3.5 mmol/L (3.7-5.1); SODIUM 137 mmol/L (135-145); eGFR VALUE FOR BLACK 11 mL/Min
[2017-04-26 05:35] LABS: BLOOD UREA NITROGEN 58 mg/dl (6-24); CREATININE 4.54 mg/dl (0.50-1.10)
[2017-04-26 09:46] LABS: ABG CO2 ARTERIAL 17 mmol/L (21-27); ARTERIAL BLD GAS O2 SATURATION 98 % (95-98); ARTERIAL BLOOD GAS PCO2 33 mmHg (32-45); ARTERIAL PO2 146 mmHg (70-100); BICARBONATE 16 mmol/L (21-28); BLOOD GAS BASE EXCESS -9 mM/L (-/+3); PH 7.32 Units (7.35-7.45)
[2017-04-26 10:50] LABS: ALB/GLOB RATIO 0.6 (0.8-2.0); ALBUMIN 2.7 g/dl (3.5-5.0); ALKALINE PHOSPHATASE 221 U/L (33-138); ALT/SGPT 32 U/L (12-78); ANION GAP 24 mmol/L (0-20); AST/SGOT 66 U/L (10-40); BILIRUBIN,TOTAL 1.9 mg/dl (0-1.5); BLOOD UREA NITROGEN 61 mg/dl (6-24); CALCIUM 8.7 mg/dl (8.5-10.5); CARBON DIOXIDE-VENOUS 18 mmol/L (22-32); CHLORIDE 103 mmol/l (96-110); CREATININE 4.78 mg/dl (0.50-1.10); GLUCOSE 126 mg/dL (70-110); POTASSIUM 3.7 mmol/L (3.7-5.1); SODIUM 141 mmol/L (135-145); eGFR VALUE FOR BLACK 10 mL/Min
[2017-04-26 10:57] LABS: PROCALCITONIN 0.23 ng/ml (0.05-0.09)
[2017-04-26 12:05] LABS: ALB/GLOB RATIO 0.6 (0.8-2.0); ALBUMIN 2.7 g/dl (3.5-5.0); BILIRUBIN,DIRECT 1.2 mg/dl (0.0-0.3); BILIRUBIN,INDIRECT 0.7 mg/dL (0.0-1.0); BILIRUBIN,TOTAL 1.9 mg/dl (0-1.5)
[2017-04-26 13:15] LABS: ABG CO2 ARTERIAL 23 mmol/L (21-27); ARTERIAL BLD GAS O2 SATURATION 98 % (95-98); ARTERIAL BLOOD GAS PCO2 35 mmHg (32-45); ARTERIAL PO2 109 mmHg (70-100); BICARBONATE 22 mmol/L (21-28); BLOOD GAS BASE EXCESS -2 mM/L (-/+3); PH 7.41 Units (7.35-7.45)
[2017-04-27 04:35] LABS: BASO % 1.2 % (0-2); BASO ABSOLUTE COUNT 0.1 tho/cmm (0.0-0.2); EOS % 0.6 % (0-7); EOSINOPHIL ABSOLUTE COUNT 0.1 tho/cmm (0.0-0.7); HGB-HEMOGLOBIN 7.4 gm/dl (12.0-15.5); IMMATURE GRANULOCYTES ABSOLUTE 0.12 tho/cmm (0-0.03); IMMATURE GRANULOCYTES PERCENT 1.3 % (0-0.3); LYMPH % 12.2 % (20-45); LYMPH ABSOLUTE COUNT 1.1 tho/cmm (0.8-4.5); MCH (MEAN CORPUSCULAR HGB) 27.2 pg (28.0-32.0); MEAN PLATELET VOLUME 9.4 cmc (9.4-12.4); MONO % 15.1 % (0-12); MONOCYTE ABSOLUTE COUNT 1.4 tho/cmm (0.0-1.2); NEUTROPHIL ABSOLUTE COUNT 6.5 tho/cmm (1.6-8.0); NEUTROPHIL-AUTOMATED 6.5 tho/cmm (1.6-8.0); NEUTROPHILS % 69.6 % (40-80); PLATELET COUNT 261 tho/cmm (150-450); RED BLOOD COUNT 2.72 mil/cmm (4.00-5.20); RED CELL DISTRIBUTION WIDTH 19.1 % (12.4-16.4); WHITE BLOOD COUNT 9.3 tho/cmm (4.0-10.0)
[2017-04-27 04:51] LABS: ANION GAP 19 mmol/L (0-20); BLOOD UREA NITROGEN 74 mg/dl (6-24); CALCIUM 7.9 mg/dl (8.5-10.5); CARBON DIOXIDE-VENOUS 21 mmol/L (22-32); CHLORIDE 105 mmol/l (96-110); CREATININE 5.22 mg/dl (0.50-1.10); GLUCOSE 92 mg/dL (70-110); MAGNESIUM 2.3 mg/dl (1.8-2.6); POTASSIUM 3.8 mmol/L (3.7-5.1); SODIUM 141 mmol/L (135-145); eGFR VALUE FOR BLACK 9 mL/Min
[2017-04-27 05:03] LABS: HCT-HEMATOCRIT 23.4 % (34.0-49.0); MCHC MEAN CORPUSCULAR HGB CONC 31.6 % (32.0-36.0)
[2017-04-27 05:16] LABS: PHOSPHOROUS 7.8 mg/dl (2.5-4.9)
[2017-04-27 07:55] LABS: WBC MORPHOLOGY TOXIC GRANULATION
[2017-04-27 16:06] LABS: HGB-HEMOGLOBIN 7.7 gm/dl (12.0-15.5); RED CELL DISTRIBUTION WIDTH 19.5 % (12.4-16.4)
[2017-04-27 16:20] LABS: HCT-HEMATOCRIT 23.9 % (34.0-49.0)
[2017-04-27 23:18] LABS: ABG CO2 ARTERIAL 24 mmol/L (21-27); ARTERIAL BLD GAS O2 SATURATION 95 % (95-98); ARTERIAL BLOOD GAS PCO2 34 mmHg (32-45); BICARBONATE 23 mmol/L (21-28); BLOOD GAS BASE EXCESS 0 mM/L (-/+3); PH 7.45 Units (7.35-7.45)
[2017-04-27 23:19] LABS: ARTERIAL PO2 79 mmHg (70-100)
[2017-04-28 04:21] LABS: BASO % 2.4 % (0-2); BASO ABSOLUTE COUNT 0.2 tho/cmm (0.0-0.2); EOS % 1.8 % (0-7); EOSINOPHIL ABSOLUTE COUNT 0.1 tho/cmm (0.0-0.7); HCT-HEMATOCRIT 24.4 % (34.0-49.0); HGB-HEMOGLOBIN 7.8 gm/dl (12.0-15.5); IMMATURE GRANULOCYTES ABSOLUTE 0.12 tho/cmm (0-0.03); IMMATURE GRANULOCYTES PERCENT 1.6 % (0-0.3); LYMPH % 17.2 % (20-45); LYMPH ABSOLUTE COUNT 1.3 tho/cmm (0.8-4.5); MCH (MEAN CORPUSCULAR HGB) 27.9 pg (28.0-32.0); MCV (MEAN CELL VOLUME) 87.1 fl (82.0-96.0); MEAN PLATELET VOLUME 9.5 cmc (9.4-12.4); MONO % 12.2 % (0-12); MONOCYTE ABSOLUTE COUNT 0.9 tho/cmm (0.0-1.2); NEUTROPHIL ABSOLUTE COUNT 4.8 tho/cmm (1.6-8.0); NEUTROPHIL-AUTOMATED 4.8 tho/cmm (1.6-8.0); NEUTROPHILS % 64.8 % (40-80); PLATELET COUNT 219 tho/cmm (150-450); RED CELL DISTRIBUTION WIDTH 19.5 % (12.4-16.4); WHITE BLOOD COUNT 7.4 tho/cmm (4.0-10.0)
[2017-04-28 04:22] LABS: INR 1.1 INR (0.9-1.1); PROTHROMBIN TIME 12.6 SECONDS (9.0-13.6)
[2017-04-28 04:29] LABS: ANION GAP 16 mmol/L (0-20); BLOOD UREA NITROGEN 41 mg/dl (6-24); CALCIUM 7.8 mg/dl (8.5-10.5); CARBON DIOXIDE-VENOUS 23 mmol/L (22-32); CHLORIDE 106 mmol/l (96-110); GLUCOSE 89 mg/dL (70-110); MAGNESIUM 1.7 mg/dl (1.8-2.6); POTASSIUM 3.6 mmol/L (3.7-5.1); SODIUM 141 mmol/L (135-145)
[2017-04-28 05:02] LABS: CREATININE 3.52 mg/dl (0.50-1.10); PHOSPHOROUS 5.3 mg/dl (2.5-4.9); TRIGLYCERIDES 275 mg/dl (<149); eGFR VALUE FOR BLACK 15 mL/Min
[2017-04-28 05:42] LABS: ABG CO2 ARTERIAL 24 mmol/L (21-27); ARTERIAL BLD GAS O2 SATURATION 98 % (95-98); ARTERIAL BLOOD GAS PCO2 35 mmHg (32-45); BICARBONATE 23 mmol/L (21-28); BLOOD GAS BASE EXCESS -1 mM/L (-/+3); PH 7.43 Units (7.35-7.45)
[2017-04-28 05:43] LABS: ARTERIAL PO2 105 mmHg (70-100)
[2017-04-28 09:47] LABS: CSF GLUCOSE 43 mg/dl (40-75)
[2017-04-28 10:48] LABS: CSF TUBE NUMBER CSF TUBE 3
[2017-04-28 10:49] LABS: CSF APPEARANCE CLEAR (CLEAR); CSF COLOR COLORLESS (COLORLESS)
[2017-04-28 10:50] LABS: CSF RBC CT 10 cmm (0); CSF WBC CT <1 cmm (0-10)
[2017-04-29 04:03] LABS: BASO % 1.7 % (0-2); BASO ABSOLUTE COUNT 0.1 tho/cmm (0.0-0.2); EOS % 2.6 % (0-7); EOSINOPHIL ABSOLUTE COUNT 0.2 tho/cmm (0.0-0.7); HGB-HEMOGLOBIN 7.9 gm/dl (12.0-15.5); IMMATURE GRANULOCYTES ABSOLUTE 0.14 tho/cmm (0-0.03); IMMATURE GRANULOCYTES PERCENT 1.7 % (0-0.3); LYMPH % 6.9 % (20-45); LYMPH ABSOLUTE COUNT 0.6 tho/cmm (0.8-4.5); MCH (MEAN CORPUSCULAR HGB) 27.6 pg (28.0-32.0); MCHC MEAN CORPUSCULAR HGB CONC 31.6 % (32.0-36.0); MCV (MEAN CELL VOLUME) 87.4 fl (82.0-96.0); MEAN PLATELET VOLUME 9.8 cmc (9.4-12.4); MONO % 12.3 % (0-12); NEUTROPHIL ABSOLUTE COUNT 6.2 tho/cmm (1.6-8.0); NEUTROPHIL-AUTOMATED 6.2 tho/cmm (1.6-8.0); NEUTROPHILS % 74.8 % (40-80); PLATELET COUNT 232 tho/cmm (150-450); RED BLOOD COUNT 2.86 mil/cmm (4.00-5.20); RED CELL DISTRIBUTION WIDTH 19.6 % (12.4-16.4); WHITE BLOOD COUNT 8.3 tho/cmm (4.0-10.0)
[2017-04-29 04:19] LABS: ANION GAP 16 mmol/L (0-20); BLOOD UREA NITROGEN 52 mg/dl (6-24); CALCIUM 8.3 mg/dl (8.5-10.5); CARBON DIOXIDE-VENOUS 23 mmol/L (22-32); CHLORIDE 105 mmol/l (96-110); CREATININE 4.07 mg/dl (0.50-1.10); GLUCOSE 93 mg/dL (70-110); PHOSPHOROUS 5.7 mg/dl (2.5-4.9); POTASSIUM 3.6 mmol/L (3.7-5.1); SODIUM 140 mmol/L (135-145); eGFR VALUE FOR BLACK 12 mL/Min
[2017-04-29 04:29] LABS: MAGNESIUM 2.6 mg/dl (1.8-2.6)
[2017-04-29 04:59] LABS: ABG CO2 ARTERIAL 23 mmol/L (21-27); ARTERIAL BLD GAS O2 SATURATION 98 % (95-98); ARTERIAL BLOOD GAS PCO2 34 mmHg (32-45); ARTERIAL PO2 98 mmHg (70-100); BICARBONATE 22 mmol/L (21-28); BLOOD GAS BASE EXCESS -2 mM/L (-/+3); PH 7.42 Units (7.35-7.45)
[2017-04-30 09:37] LABS: BASO % 2.6 % (0-2); BASO ABSOLUTE COUNT 0.2 tho/cmm (0.0-0.2); EOS % 2.2 % (0-7); EOSINOPHIL ABSOLUTE COUNT 0.2 tho/cmm (0.0-0.7); HCT-HEMATOCRIT 26.5 % (34.0-49.0); HGB-HEMOGLOBIN 8.4 gm/dl (12.0-15.5); IMMATURE GRANULOCYTES PERCENT 2.8 % (0-0.3); LYMPH % 12.5 % (20-45); LYMPH ABSOLUTE COUNT 0.9 tho/cmm (0.8-4.5); MCH (MEAN CORPUSCULAR HGB) 27.9 pg (28.0-32.0); MCHC MEAN CORPUSCULAR HGB CONC 31.7 % (32.0-36.0); MEAN PLATELET VOLUME 9.9 cmc (9.4-12.4); MONO % 15.9 % (0-12); MONOCYTE ABSOLUTE COUNT 1.2 tho/cmm (0.0-1.2); NEUTROPHIL ABSOLUTE COUNT 4.6 tho/cmm (1.6-8.0); NEUTROPHIL-AUTOMATED 4.6 tho/cmm (1.6-8.0); PLATELET COUNT 200 tho/cmm (150-450); RED BLOOD COUNT 3.01 mil/cmm (4.00-5.20); RED CELL DISTRIBUTION WIDTH 19.8 % (12.4-16.4); WHITE BLOOD COUNT 7.2 tho/cmm (4.0-10.0)
[2017-04-30 09:47] LABS: ANION GAP 15 mmol/L (0-20); BLOOD UREA NITROGEN 29 mg/dl (6-24); CALCIUM 8.1 mg/dl (8.5-10.5); CARBON DIOXIDE-VENOUS 24 mmol/L (22-32); CHLORIDE 104 mmol/l (96-110); GLUCOSE 84 mg/dL (70-110); POTASSIUM 3.5 mmol/L (3.7-5.1); SODIUM 139 mmol/L (135-145); eGFR VALUE FOR BLACK 19 mL/Min
[2017-04-30 09:49] LABS: CREATININE 2.83 mg/dl (0.50-1.10)
[2017-04-30 19:27] LABS: URINE BILIRUBIN NEGATIVE (NEG); URINE BLOOD MODERATE (NEG); URINE GLUCOSE (UA) NEGATIVE (NEG); URINE KETONE NEGATIVE (NEG); URINE LEUKOCYTE ESTERASE POSITIVE (NEG); URINE NITRITE NEGATIVE (NEG); URINE PROTEIN MODERATE (NEG); URINE SPECIFIC GRAVITY 1.005 (1.003-1.030)
[2017-04-30 19:28] LABS: URINE APPEARANCE CLOUDY; URINE COLOR PALE YELLOW
[2017-04-30 19:42] LABS: URINE WBC 15-20 /[HPF] (0-5)
[2017-04-30 19:43] LABS: URINE AMORPHOUS 2+; URINE RBC RARE /[HPF] (0-5)
[2017-05-01 04:55] LABS: EOS % 6.5 % (0-7); HGB-HEMOGLOBIN 8.2 gm/dl (12.0-15.5); IMMATURE GRANULOCYTES PERCENT 1.7 % (0-0.3); LYMPH % 9.8 % (20-45); MCH (MEAN CORPUSCULAR HGB) 27.7 pg (28.0-32.0); MCHC MEAN CORPUSCULAR HGB CONC 31.5 % (32.0-36.0); MCV (MEAN CELL VOLUME) 87.8 fl (82.0-96.0); MEAN PLATELET VOLUME 9.9 cmc (9.4-12.4); MONO % 16.6 % (0-12); NEUTROPHIL-AUTOMATED 4.5 tho/cmm (1.6-8.0); NEUTROPHILS % 62.1 % (40-80); PLATELET COUNT 202 tho/cmm (150-450); RED BLOOD COUNT 2.96 mil/cmm (4.00-5.20); RED CELL DISTRIBUTION WIDTH 19.4 % (12.4-16.4); WHITE BLOOD COUNT 7.2 tho/cmm (4.0-10.0)
[2017-05-01 05:04] LABS: ANION GAP 16 mmol/L (0-20); BLOOD UREA NITROGEN 40 mg/dl (6-24); CALCIUM 8.6 mg/dl (8.5-10.5); CARBON DIOXIDE-VENOUS 23 mmol/L (22-32); CHLORIDE 104 mmol/l (96-110); CREATININE 3.24 mg/dl (0.50-1.10); GLUCOSE 97 mg/dL (70-110); MAGNESIUM 2.3 mg/dl (1.8-2.6); PHOSPHOROUS 5.4 mg/dl (2.5-4.9); POTASSIUM 3.3 mmol/L (3.7-5.1); SODIUM 140 mmol/L (135-145); eGFR VALUE FOR BLACK 16 mL/Min
[2017-05-01 05:05] LABS: BASO % 3.3 % (0-2); BASO ABSOLUTE COUNT 0.2 tho/cmm (0.0-0.2); EOSINOPHIL ABSOLUTE COUNT 0.5 tho/cmm (0.0-0.7); IMMATURE GRANULOCYTES ABSOLUTE 0.12 tho/cmm (0-0.03); LYMPH ABSOLUTE COUNT 0.7 tho/cmm (0.8-4.5); MONOCYTE ABSOLUTE COUNT 1.2 tho/cmm (0.0-1.2); NEUTROPHIL ABSOLUTE COUNT 4.5 tho/cmm (1.6-8.0)
[2017-05-01 16:42] LABS: ALB/GLOB RATIO 0.7 (0.8-2.0); ALBUMIN 2.5 g/dl (3.5-5.0); BILIRUBIN,DIRECT 0.7 mg/dl (0.0-0.3); BILIRUBIN,INDIRECT 0.3 mg/dL (0.0-1.0)
[2017-05-02 05:06] LABS: EOS % 6.8 % (0-7); HCT-HEMATOCRIT 27.8 % (34.0-49.0); HGB-HEMOGLOBIN 8.5 gm/dl (12.0-15.5); IMMATURE GRANULOCYTES PERCENT 1.9 % (0-0.3); LYMPH % 13.9 % (20-45); MCH (MEAN CORPUSCULAR HGB) 27.2 pg (28.0-32.0); MCHC MEAN CORPUSCULAR HGB CONC 30.6 % (32.0-36.0); MCV (MEAN CELL VOLUME) 88.8 fl (82.0-96.0); MEAN PLATELET VOLUME 10.2 cmc (9.4-12.4); NEUTROPHIL-AUTOMATED 5.1 tho/cmm (1.6-8.0); NEUTROPHILS % 60.2 % (40-80); PLATELET COUNT 249 tho/cmm (150-450); RED BLOOD COUNT 3.13 mil/cmm (4.00-5.20); RED CELL DISTRIBUTION WIDTH 19.1 % (12.4-16.4); WHITE BLOOD COUNT 8.4 tho/cmm (4.0-10.0)
[2017-05-02 05:13] LABS: ANION GAP 17 mmol/L (0-20); BLOOD UREA NITROGEN 39 mg/dl (6-24); CALCIUM 8.8 mg/dl (8.5-10.5); CARBON DIOXIDE-VENOUS 23 mmol/L (22-32); CHLORIDE 107 mmol/l (96-110); CREATININE 2.83 mg/dl (0.50-1.10); GLUCOSE 108 mg/dL (70-110); MAGNESIUM 2.2 mg/dl (1.8-2.6); PHOSPHOROUS 4.5 mg/dl (2.5-4.9); POTASSIUM 3.4 mmol/L (3.7-5.1); SODIUM 144 mmol/L (135-145); eGFR VALUE FOR BLACK 19 mL/Min
[2017-05-02 05:17] LABS: BASO % 3.2 % (0-2); BASO ABSOLUTE COUNT 0.3 tho/cmm (0.0-0.2); EOSINOPHIL ABSOLUTE COUNT 0.6 tho/cmm (0.0-0.7); IMMATURE GRANULOCYTES ABSOLUTE 0.16 tho/cmm (0-0.03); LYMPH ABSOLUTE COUNT 1.2 tho/cmm (0.8-4.5); MONOCYTE ABSOLUTE COUNT 1.2 tho/cmm (0.0-1.2); NEUTROPHIL ABSOLUTE COUNT 5.1 tho/cmm (1.6-8.0)
[2017-05-02 05:23] LABS: TRIGLYCERIDES 203 mg/dl (<149)
[2017-05-03 03:42] LABS: ANION GAP 17 mmol/L (0-20); BLOOD UREA NITROGEN 38 mg/dl (6-24); CARBON DIOXIDE-VENOUS 21 mmol/L (22-32); CHLORIDE 107 mmol/l (96-110); CREATININE 2.74 mg/dl (0.50-1.10); GLUCOSE 115 mg/dL (70-110); POTASSIUM 3.7 mmol/L (3.7-5.1); SODIUM 141 mmol/L (135-145); eGFR VALUE FOR BLACK 20 mL/Min
[2017-05-03 05:48] LABS: ABG CO2 ARTERIAL 21 mmol/L (21-27); ARTERIAL BLD GAS O2 SATURATION 98 % (95-98); ARTERIAL BLOOD GAS PCO2 32 mmHg (32-45); ARTERIAL PO2 99 mmHg (70-100); BICARBONATE 20 mmol/L (21-28); BLOOD GAS BASE EXCESS -4 mM/L (-/+3); PH 7.41 Units (7.35-7.45)
[2017-05-04 04:42] LABS: BASO % 2.2 % (0-2); BASO ABSOLUTE COUNT 0.3 tho/cmm (0.0-0.2); EOSINOPHIL ABSOLUTE COUNT 0.5 tho/cmm (0.0-0.7); HGB-HEMOGLOBIN 8.9 gm/dl (12.0-15.5); IMMATURE GRANULOCYTES ABSOLUTE 0.15 tho/cmm (0-0.03); IMMATURE GRANULOCYTES PERCENT 1.3 % (0-0.3); LYMPH % 10.3 % (20-45); LYMPH ABSOLUTE COUNT 1.2 tho/cmm (0.8-4.5); MCH (MEAN CORPUSCULAR HGB) 27.1 pg (28.0-32.0); MCHC MEAN CORPUSCULAR HGB CONC 30.7 % (32.0-36.0); MCV (MEAN CELL VOLUME) 88.4 fl (82.0-96.0); MEAN PLATELET VOLUME 9.7 cmc (9.4-12.4); MONO % 10.5 % (0-12); MONOCYTE ABSOLUTE COUNT 1.2 tho/cmm (0.0-1.2); NEUTROPHIL ABSOLUTE COUNT 8.2 tho/cmm (1.6-8.0); NEUTROPHIL-AUTOMATED 8.2 tho/cmm (1.6-8.0); NEUTROPHILS % 71.7 % (40-80); PLATELET COUNT 308 tho/cmm (150-450); RED BLOOD COUNT 3.28 mil/cmm (4.00-5.20); RED CELL DISTRIBUTION WIDTH 18.5 % (12.4-16.4); WHITE BLOOD COUNT 11.4 tho/cmm (4.0-10.0)
[2017-05-04 04:56] LABS: ALBUMIN 2.8 g/dl (3.5-5.0); ANION GAP 17 mmol/L (0-20); BLOOD UREA NITROGEN 47 mg/dl (6-24); CALCIUM 9.1 mg/dl (8.5-10.5); CARBON DIOXIDE-VENOUS 20 mmol/L (22-32); CHLORIDE 108 mmol/l (96-110); CREATININE 3.08 mg/dl (0.50-1.10); GLUCOSE 85 mg/dL (70-110); MAGNESIUM 2.2 mg/dl (1.8-2.6); POTASSIUM 3.3 mmol/L (3.7-5.1); SODIUM 142 mmol/L (135-145); eGFR VALUE FOR BLACK 17 mL/Min
[2017-05-05 05:35] LABS: ANION GAP 17 mmol/L (0-20); BLOOD UREA NITROGEN 49 mg/dl (6-24); CALCIUM 9.1 mg/dl (8.5-10.5); CARBON DIOXIDE-VENOUS 18 mmol/L (22-32); CHLORIDE 105 mmol/l (96-110); CREATININE 2.73 mg/dl (0.50-1.10); GLUCOSE 94 mg/dL (70-110); MAGNESIUM 1.8 mg/dl (1.8-2.6); PHOSPHOROUS 3.6 mg/dl (2.5-4.9); POTASSIUM 3.3 mmol/L (3.7-5.1); SODIUM 137 mmol/L (135-145); eGFR VALUE FOR BLACK 20 mL/Min
[2017-05-06 04:31] LABS: BASO % 0.9 % (0-2); BASO ABSOLUTE COUNT 0.1 tho/cmm (0.0-0.2); EOS % 1.5 % (0-7); EOSINOPHIL ABSOLUTE COUNT 0.2 tho/cmm (0.0-0.7); HCT-HEMATOCRIT 29.3 % (34.0-49.0); HGB-HEMOGLOBIN 9.2 gm/dl (12.0-15.5); IMMATURE GRANULOCYTES ABSOLUTE 0.09 tho/cmm (0-0.03); IMMATURE GRANULOCYTES PERCENT 0.8 % (0-0.3); LYMPH % 7.8 % (20-45); LYMPH ABSOLUTE COUNT 0.9 tho/cmm (0.8-4.5); MCH (MEAN CORPUSCULAR HGB) 27.3 pg (28.0-32.0); MCHC MEAN CORPUSCULAR HGB CONC 31.4 % (32.0-36.0); MCV (MEAN CELL VOLUME) 86.9 fl (82.0-96.0); MEAN PLATELET VOLUME 9.4 cmc (9.4-12.4); MONO % 13.7 % (0-12); MONOCYTE ABSOLUTE COUNT 1.6 tho/cmm (0.0-1.2); NEUTROPHIL ABSOLUTE COUNT 8.7 tho/cmm (1.6-8.0); NEUTROPHIL-AUTOMATED 8.7 tho/cmm (1.6-8.0); NEUTROPHILS % 75.3 % (40-80); PLATELET COUNT 321 tho/cmm (150-450); RED BLOOD COUNT 3.37 mil/cmm (4.00-5.20); RED CELL DISTRIBUTION WIDTH 17.4 % (12.4-16.4); WHITE BLOOD COUNT 11.6 tho/cmm (4.0-10.0)
[2017-05-06 04:38] LABS: ANION GAP 17 mmol/L (0-20); BLOOD UREA NITROGEN 51 mg/dl (6-24); CARBON DIOXIDE-VENOUS 18 mmol/L (22-32); CHLORIDE 107 mmol/l (96-110); CREATININE 2.46 mg/dl (0.50-1.10); GLUCOSE 91 mg/dL (70-110); POTASSIUM 3.4 mmol/L (3.7-5.1); SODIUM 139 mmol/L (135-145); eGFR VALUE FOR BLACK 23 mL/Min
[2017-05-06 17:20] LABS: BASO % 0.5 % (0-2); BASO ABSOLUTE COUNT 0.1 tho/cmm (0.0-0.2); EOS % 1.1 % (0-7); EOSINOPHIL ABSOLUTE COUNT 0.1 tho/cmm (0.0-0.7); HCT-HEMATOCRIT 28.6 % (34.0-49.0); IMMATURE GRANULOCYTES ABSOLUTE 0.08 tho/cmm (0-0.03); IMMATURE GRANULOCYTES PERCENT 0.7 % (0-0.3); LYMPH % 7.6 % (20-45); LYMPH ABSOLUTE COUNT 0.9 tho/cmm (0.8-4.5); MCH (MEAN CORPUSCULAR HGB) 27.2 pg (28.0-32.0); MCHC MEAN CORPUSCULAR HGB CONC 31.5 % (32.0-36.0); MCV (MEAN CELL VOLUME) 86.4 fl (82.0-96.0); MEAN PLATELET VOLUME 9.1 cmc (9.4-12.4); MONO % 12.8 % (0-12); MONOCYTE ABSOLUTE COUNT 1.5 tho/cmm (0.0-1.2); NEUTROPHIL ABSOLUTE COUNT 8.9 tho/cmm (1.6-8.0); NEUTROPHIL-AUTOMATED 8.9 tho/cmm (1.6-8.0); NEUTROPHILS % 77.3 % (40-80); PLATELET COUNT 310 tho/cmm (150-450); RED BLOOD COUNT 3.31 mil/cmm (4.00-5.20); RED CELL DISTRIBUTION WIDTH 17.2 % (12.4-16.4); WHITE BLOOD COUNT 11.5 tho/cmm (4.0-10.0)
[2017-05-06 17:28] LABS: INR 1.3 INR (0.9-1.1); PROTHROMBIN TIME 14.7 SECONDS (9.0-13.6)
[2017-05-07 04:59] LABS: BASO % 1.1 % (0-2); BASO ABSOLUTE COUNT 0.1 tho/cmm (0.0-0.2); EOS % 1.3 % (0-7); EOSINOPHIL ABSOLUTE COUNT 0.1 tho/cmm (0.0-0.7); HCT-HEMATOCRIT 28.6 % (34.0-49.0); HGB-HEMOGLOBIN 8.9 gm/dl (12.0-15.5); IMMATURE GRANULOCYTES ABSOLUTE 0.09 tho/cmm (0-0.03); IMMATURE GRANULOCYTES PERCENT 0.9 % (0-0.3); LYMPH % 11.8 % (20-45); LYMPH ABSOLUTE COUNT 1.2 tho/cmm (0.8-4.5); MCH (MEAN CORPUSCULAR HGB) 26.6 pg (28.0-32.0); MCHC MEAN CORPUSCULAR HGB CONC 31.1 % (32.0-36.0); MCV (MEAN CELL VOLUME) 85.6 fl (82.0-96.0); MEAN PLATELET VOLUME 9.6 cmc (9.4-12.4); MONO % 12.1 % (0-12); MONOCYTE ABSOLUTE COUNT 1.2 tho/cmm (0.0-1.2); NEUTROPHIL ABSOLUTE COUNT 7.1 tho/cmm (1.6-8.0); NEUTROPHIL-AUTOMATED 7.1 tho/cmm (1.6-8.0); NEUTROPHILS % 72.8 % (40-80); PLATELET COUNT 304 tho/cmm (150-450); RED BLOOD COUNT 3.34 mil/cmm (4.00-5.20); RED CELL DISTRIBUTION WIDTH 16.9 % (12.4-16.4); WHITE BLOOD COUNT 9.8 tho/cmm (4.0-10.0)
[2017-05-07 05:10] LABS: ANION GAP 17 mmol/L (0-20); BLOOD UREA NITROGEN 50 mg/dl (6-24); CALCIUM 9.2 mg/dl (8.5-10.5); CARBON DIOXIDE-VENOUS 18 mmol/L (22-32); CHLORIDE 106 mmol/l (96-110); GLUCOSE 94 mg/dL (70-110); MAGNESIUM 1.8 mg/dl (1.8-2.6); PHOSPHOROUS 3.9 mg/dl (2.5-4.9); POTASSIUM 3.9 mmol/L (3.7-5.1); SODIUM 137 mmol/L (135-145); eGFR VALUE FOR BLACK 25 mL/Min
[2017-05-07] MEDS ORDERED: NYSTOP60 GM EXT (17:46)
== END 2017-05-07 16:35 | disposition other institution (70) | DRG 853 ==
LOC: EDMED 11:34 → EMR2 15:52 → CCU 18:10 → PCUB 04-24 15:50 → CCU 04-26 10:11
PROVIDERS: Emergency Medicine; Hospitalist; Internal Medicine; Internal Medicine Critical Care Medicine; Internal Medicine Hematology & Oncology; Internal Medicine Infectious Disease; Internal Medicine Nephrology; Internal Medicine Pulmonary Disease; Psychiatry & Neurology Neurology; Radiology Diagnostic Radiology; ADMIT Family Medicine
PROC: 02HV33Z Insertion of Infusion Device into Superior Vena Cava, Percutaneous Approach (ICD-10-PCS; principal; 2017-04-10)
PROC: 5A1955Z Respiratory Ventilation, Greater than 96 Consecutive Hours (ICD-10-PCS; 2017-04-11)
PROC: 0BH17EZ Insertion of Endotracheal Airway into Trachea, Via Natural or Artificial Opening (ICD-10-PCS; 2017-04-11)
PROC: 0T9430Z Drainage of Left Kidney Pelvis with Drainage Device, Percutaneous Approach (ICD-10-PCS; 2017-04-11)
PROC: 30243N1 Transfusion of Nonautologous Red Blood Cells into Central Vein, Percutaneous Approach (ICD-10-PCS; 2017-04-11)
PROC: 5A1D60Z (ICD-10-PCS; 2017-04-12)
PROC: 02H633Z Insertion of Infusion Device into Right Atrium, Percutaneous Approach (ICD-10-PCS; 2017-04-12)
PROC: B214YZZ Fluoroscopy of Right Heart using Other Contrast (ICD-10-PCS; 2017-04-12)
PROC: 0B968ZZ Drainage of Right Lower Lobe Bronchus, Via Natural or Artificial Opening Endoscopic (ICD-10-PCS; 2017-04-18)
PROC: 0B9B8ZZ Drainage of Left Lower Lobe Bronchus, Via Natural or Artificial Opening Endoscopic (ICD-10-PCS; 2017-04-18)
PROC: 02HV33Z Insertion of Infusion Device into Superior Vena Cava, Percutaneous Approach (ICD-10-PCS; 2017-04-21)
PROC: B518YZA Fluoroscopy of Superior Vena Cava using Other Contrast, Guidance (ICD-10-PCS; 2017-04-21)
PROC: 0JH60XZ Insertion of Tunneled Vascular Access Device into Chest Subcutaneous Tissue and Fascia, Open Approach (ICD-10-PCS; 2017-04-21)
PROC: 5A09357 Assistance with Respiratory Ventilation, Less than 24 Consecutive Hours, Continuous Positive Airway Pressure (ICD-10-PCS; 2017-04-23)
PROC: 0HQ4XZZ Repair Neck Skin, External Approach (ICD-10-PCS; 2017-04-23)
PROC: 5A1955Z Respiratory Ventilation, Greater than 96 Consecutive Hours (ICD-10-PCS; 2017-04-26)
PROC: 0BH18EZ Insertion of Endotracheal Airway into Trachea, Via Natural or Artificial Opening Endoscopic (ICD-10-PCS; 2017-04-26)
PROC: 0B9B8ZX Drainage of Left Lower Lobe Bronchus, Via Natural or Artificial Opening Endoscopic, Diagnostic (ICD-10-PCS; 2017-04-27)
PROC: 009U3ZX Drainage of Spinal Canal, Percutaneous Approach, Diagnostic (ICD-10-PCS; 2017-04-28)
PROC: B01BYZZ Fluoroscopy of Spinal Cord using Other Contrast (ICD-10-PCS; 2017-04-28)
PROC: 0JPTXXZ Removal of Tunneled Vascular Access Device from Trunk Subcutaneous Tissue and Fascia, External Approach (ICD-10-PCS; 2017-05-07)
PROC: 03PYX3Z Removal of Infusion Device from Upper Artery, External Approach (ICD-10-PCS; 2017-05-07)
DX: A41.89 Other specified sepsis (principal); G92 Toxic encephalopathy; R65.21 Severe sepsis with septic shock; J96.01 Acute respiratory failure with hypoxia; K72.00 Acute and subacute hepatic failure without coma; E43 Unspecified severe protein-calorie malnutrition; K75.0 Abscess of liver; N17.9 Acute kidney failure, unspecified; R18.8 Other ascites; I46.9 Cardiac arrest, cause unspecified; I82.401 Acute embolism and thrombosis of unspecified deep veins of right lower extremity; N39.0 Urinary tract infection, site not specified; N13.6 Pyonephrosis; E87.2 Acidosis; D68.9 Coagulation defect, unspecified; T81.31XA Disruption of external operation (surgical) wound, not elsewhere classified, initial encounter; B96.1 Klebsiella pneumoniae [K. pneumoniae] as the cause of diseases classified elsewhere; D69.6 Thrombocytopenia, unspecified; M54.2 Cervicalgia; G40.909 Epilepsy, unspecified, not intractable, without status epilepticus; E78.5 Hyperlipidemia, unspecified; M81.0 Age-related osteoporosis without current pathological fracture; M19.90 Unspecified osteoarthritis, unspecified site; Z79.01 Long term (current) use of anticoagulants; Z79.82 Long term (current) use of aspirin; L72.3 Sebaceous cyst; R19.7 Diarrhea, unspecified; M25.552 Pain in left hip; Z87.891 Personal history of nicotine dependence; I49.9 Cardiac arrhythmia, unspecified; E83.42 Hypomagnesemia; E87.6 Hypokalemia; K76.0 Fatty (change of) liver, not elsewhere classified; R31.9 Hematuria, unspecified; K57.90 Diverticulosis of intestine, part unspecified, without perforation or abscess without bleeding; E83.51 Hypocalcemia; N28.1 Cyst of kidney, acquired; K75.89 Other specified inflammatory liver diseases; D64.9 Anemia, unspecified; E87.70 Fluid overload, unspecified; E16.2 Hypoglycemia, unspecified; I11.0 Hypertensive heart disease with heart failure; I50.9 Heart failure, unspecified; I25.5 Ischemic cardiomyopathy; R21 Rash and other nonspecific skin eruption; B37.9 Candidiasis, unspecified; Z68.33 Body mass index [BMI] 33.0-33.9, adult
CPT/HCPCS: C1729; C1750; C1751; C1752; C1758; C1769; C1894; C8924; C8929; C9113; J0171; J0330; J0360; J0690; J0885; J1450; J1644; J1650; J1720; J1815; J1940; J1953; J1956; J2250; J2270; J2405; J2543; J2704; J2997; J3010; J3370; J3411; J3475; J3480; J7030; J7040; J7050; L4396; P9016; P9017; P9031; P9033; P9035; P9037; P9045; P9047; Q2009